=== PATIENT | female | born 1960 | race Caucasian/White ===

== ENCOUNTER 2016-11-04 11:26 | Inpatient (IN) | payer MEDICAID, OTHER ==
[~2016-11-04] VITALS: Ht 167.6 cm; Wt 64.1 kg
[2016-11-04] MEDS ORDERED: SODIUM CHLORIDE FLUSH 10ML SYR IVF ONE (12:30)
[2016-11-04] MEDS ORDERED: ONDANSETRON 2MG/ML, 2ML IVPush ONE (12:30)
[2016-11-04] MEDS ORDERED: SODIUM CHLORIDE 0.9% 1,000ML IVBOLUS ONE (12:30)
[2016-11-04 12:37] LABS: HEMOGLOBIN 10.3 g/dL (11.7-16.4)
[2016-11-04] MEDS ORDERED: CRAN300T PO (12:40)
[2016-11-04] MEDS ORDERED: LORA10TA75 PO (12:40)
[2016-11-04] MEDS ORDERED: METR500T PO (12:40)
[2016-11-04] MEDS ORDERED: LACT1CAP35 PO (12:40)
[2016-11-04] MEDS ORDERED: CHOL20002 PO (12:40)
[2016-11-04] MEDS ORDERED: ASCO-96 PO (12:40)
[2016-11-04 12:51] LABS: ASPARTATE AMINO TRANSFERASE 31 U/L (15-37); BLOOD UREA NITROGEN 5 mg/dL (7-18)
[2016-11-04] MEDS ORDERED: ONDANSETRON 2MG/ML, 2ML ONE (12:52)
[2016-11-04] MEDS ORDERED: MORPHINE SULFATE 4 MG/ML, 1ML ONE ×2 (12:52→13:56)
[2016-11-04] MEDS: MORPHINE SULFATE 4 MG/ML, 1ML IVPush PRN ×3 (13:21→20:28)
[2016-11-04 15:45] LABS: PATH.CAST-FLAG NOT PRESENT; SPERM-FLAG NOT PRESENT; SRC-FLAG NOT PRESENT; XTAL-FLAG NOT PRESENT; YLC-FLAG NOT PRESENT
[2016-11-04] MEDS ORDERED: HYDROmorphone 1 MG/ML, 1ML ONE (15:55)
[2016-11-04] MEDS ORDERED: SODIUM CHLORIDE 0.9% 1,000 ML IV ONE (16:03)
[2016-11-04] MEDS ORDERED: HYDROmorphone 1 MG/ML, 1ML IVPush PRN (16:30)
[2016-11-04] MEDS ORDERED: CEFTRIAXONE PMX 1GM/50ML 50 ML IV ONE ×2 (16:30→17:00)
[2016-11-04] MEDS ORDERED: OMNIPAQUE 350 MG/ML, 100ML BOTTLE ONE (16:34)
[2016-11-04] MEDS ORDERED: BISACODYL 10 MG SUPP PR PRN (17:30)
[2016-11-04] MEDS: VANCOMYCIN 50 MG/ML ORAL SUSP PO SCH (17:30)
[2016-11-04] MEDS ORDERED: ONDANSETRON 2MG/ML, 2ML IVP PRN (17:30)
[2016-11-04] MEDS ORDERED: POTASSIUM CHLORIDE 20 MEQ TAB.ER.PRT PO ONE (17:30)
[2016-11-04] MEDS ORDERED: DOCUSATE 100 MG CAPSULE PO PRN (17:30)
[2016-11-04] MEDS: LACTOBACILLUS 1GM/ PACKET PO SCH ×2 (17:30→20:28)
[2016-11-04] MEDS ORDERED: POLYETHYLENE GLYCOL 17 GM PACKET PO PRN (17:30)
[2016-11-04] MEDS ORDERED: CEFTRIAXONE PMX 1GM/50ML 50 ML IV SCH (17:30)
[2016-11-04] MEDS ORDERED: ACETAMINOPHEN 325 MG TABLET PO PRN (17:30)
[2016-11-04 18:20] LABS: TOTAL IRON BINDING CAPACITY 331 mcg/dL (250-450)
[2016-11-04 18:29] VITALS: BP 122/79
[2016-11-04] MEDS ORDERED: morphine SULFATE 10 MG/ML, 1ML IVPush PRN (20:00)
[2016-11-04] MEDS: ENOXAPARIN 40 MG/0.4 ML SQ SCH (20:28)
[2016-11-04] MEDS: SODIUM CHLORIDE 0.9% 1,000 ML IV SCH (20:28)
[2016-11-04 22:15] VITALS: BP 124/68
[2016-11-05] MEDS: MORPHINE SULFATE 4 MG/ML, 1ML IVPush PRN ×3 (01:34→19:57)
[2016-11-05 02:58] VITALS: BP 137/80
[2016-11-05] MEDS: VANCOMYCIN 50 MG/ML ORAL SUSP PO SCH ×4 (05:12→16:35)
[2016-11-05] MEDS: LACTOBACILLUS 1GM/ PACKET PO SCH ×4 (05:12→21:06)
[2016-11-05] MEDS: SODIUM CHLORIDE 0.9% 1,000 ML IV SCH (05:12)
[2016-11-05 06:15] LABS: HEMOGLOBIN 9.4 g/dL (11.7-16.4)
[2016-11-05 06:33] LABS: ASPARTATE AMINO TRANSFERASE 29 U/L (15-37); BLOOD UREA NITROGEN 2 mg/dL (7-18)
[2016-11-05 06:55] VITALS: BP 139/80
[2016-11-05] MEDS: CHOLECALCIFEROL 1,000 UNIT TABLET PO SCH (08:01)
[2016-11-05] MEDS: ASCORBIC ACID 500 MG TABLET PO SCH (08:01)
[2016-11-05] MEDS: LORATADINE 10 MG TABLET PO SCH (08:01)
[2016-11-05 13:00] VITALS: BP 144/75
[2016-11-05 19:12] VITALS: BP 120/69
[2016-11-05] MEDS: DIPHENHYDRAMINE 25 MG CAPSULE PO PRN (19:57)
[2016-11-05] MEDS: ENOXAPARIN 40 MG/0.4 ML SQ SCH (21:06)
[2016-11-06] MEDS: VANCOMYCIN 50 MG/ML ORAL SUSP PO SCH ×5 (00:08→23:40)
[2016-11-06] MEDS: MORPHINE SULFATE 4 MG/ML, 1ML IVPush PRN ×3 (00:08→23:40)
[2016-11-06 02:36] VITALS: BP 146/89
[2016-11-06] MEDS: DIPHENHYDRAMINE 25 MG CAPSULE PO PRN (02:54)
[2016-11-06] MEDS: LACTOBACILLUS 1GM/ PACKET PO SCH ×4 (05:55→22:07)
[2016-11-06 07:34] VITALS: BP 161/78
[2016-11-06] MEDS: CHOLECALCIFEROL 1,000 UNIT TABLET PO SCH (10:48)
[2016-11-06] MEDS: LORATADINE 10 MG TABLET PO SCH (10:48)
[2016-11-06] MEDS: ASCORBIC ACID 500 MG TABLET PO SCH (10:48)
[2016-11-06] MEDS ORDERED: LORazepam 1MG TABLET PO PRN (11:00)
[2016-11-06] MEDS ORDERED: HEMORRHOIDAL SUPP.RECT PR PRN (11:00)
[2016-11-06] MEDS ORDERED: OXYcodone/APAP 5/325MG TABLET PO PRN (12:00)
[2016-11-06] MEDS ORDERED: TRAZODONE 50MG TABLET PO PRN (12:00)
[2016-11-06] MEDS: DOCUSATE 100 MG CAPSULE PO SCH ×2 (12:23→21:00)
[2016-11-06 12:38] VITALS: BP 130/83
[2016-11-06] MEDS ORDERED: FENTANYL PF 100 MCG/2ML ONE (14:26)
[2016-11-06] MEDS ORDERED: MIDAZOLAM 1 MG/ML, 5ML ONE (14:26)
[2016-11-06 18:50] VITALS: BP 127/72
[2016-11-06] MEDS: ENOXAPARIN 40 MG/0.4 ML SQ SCH (21:00)
[2016-11-07 02:21] VITALS: BP 104/58
[2016-11-07] MEDS: VANCOMYCIN 50 MG/ML ORAL SUSP PO SCH ×2 (05:47→10:53)
[2016-11-07] MEDS: LACTOBACILLUS 1GM/ PACKET PO SCH ×2 (05:47→10:52)
[2016-11-07 07:14] VITALS: BP 122/78
[2016-11-07] MEDS: DOCUSATE 100 MG CAPSULE PO SCH (08:07)
[2016-11-07] MEDS: LORATADINE 10 MG TABLET PO SCH (08:11)
[2016-11-07] MEDS: ASCORBIC ACID 500 MG TABLET PO SCH (08:11)
[2016-11-07] MEDS: CHOLECALCIFEROL 1,000 UNIT TABLET PO SCH (08:11)
[2016-11-07] MEDS: MORPHINE SULFATE 4 MG/ML, 1ML IVPush PRN (08:28)
[2016-11-07] MEDS ORDERED: VANC1VIA3 PO (09:30)
[2016-11-07] MEDS ORDERED: LORA-446 PO (09:30)
[2016-11-07] MEDS ORDERED: TRAZ50TA18 PO (09:30)
[2016-11-07] MEDS ORDERED: MORP30TA81 PO (09:30)
[2016-11-07] MEDS ORDERED: HYDR25SU21 PR (09:33)
[2016-11-07] MEDS ORDERED: FERR325T10 PO (09:38)
[2016-11-08] MEDS ORDERED: METO25TA35 PO (16:13)
== END 2016-11-07 15:00 | disposition home or self-care (01) | DRG 372 ==
LOC: ED 13:39 → EDIP 16:32 → 4EST 18:03 → 4WST 11-05 14:35 → DCLOUNGE 11-07 13:54
PROVIDERS: ADMIT Internal Medicine; ATTEND Internal Medicine
PROC: 0T9B70Z Drainage of Bladder with Drainage Device, Via Natural or Artificial Opening (ICD-10-PCS; 2016-11-04)
PROC: 0FB23ZX Excision of Left Lobe Liver, Percutaneous Approach, Diagnostic (ICD-10-PCS; principal; 2016-11-06)
DX: A04.7 Enterocolitis due to Clostridium difficile (principal); C78.7 Secondary malignant neoplasm of liver and intrahepatic bile duct; C18.9 Malignant neoplasm of colon, unspecified; C79.89 Secondary malignant neoplasm of other specified sites; C79.60 Secondary malignant neoplasm of unspecified ovary; N13.30 Unspecified hydronephrosis; I10 Essential (primary) hypertension; Z91.19 Patient's noncompliance with other medical treatment and regimen; E87.6 Hypokalemia; D64.9 Anemia, unspecified; N30.90 Cystitis, unspecified without hematuria; Z82.49 Family history of ischemic heart disease and other diseases of the circulatory system; Z83.3 Family history of diabetes mellitus; Z91.041 Radiographic dye allergy status; Z91.013 Allergy to seafood; E86.0 Dehydration; F41.9 Anxiety disorder, unspecified; G47.01 Insomnia due to medical condition; D50.9 Iron deficiency anemia, unspecified; K64.4 Residual hemorrhoidal skin tags; K64.8 Other hemorrhoids
CPT/HCPCS: 36415; 36569; 47000; 74177; 76937; 77012; 80053; 81001; 82378; 83540; 83550; 83605; 83690; 83735; 84100; 84443; 85025; 85379; 85610; 85730; 86304; 87040; 87086; 88307; 89055; 96361; 96374; 96375; 96376; 99156; 99157; J0696; J1170; J1650; J2250; J2405; J3010; J3370; Q9967; C1751; J7030; Q0163

== ENCOUNTER → 2016-11-22 | Outpatient (CLI) | payer MEDICAID ==
[~2016-11-22] MED LIST: ASCO-96 PO; CHOL20002 PO; CRAN300T PO; FERR325T10 PO; HYDR-3240 PO; HYDR25SU21 PR; LACT1CAP35 PO; LORA-446 PO; LORA10TA75 PO; METO25TA35 PO; METR500T PO; MORP30TA81 PO; ONDA4TAB10 PO; TRAZ50TA18 PO; VANC1VIA3 PO; ZOLP-413 PO
== END | disposition home or self-care (01) ==
LOC: PETCFH 08:26
PROVIDERS: ATTEND Radiology Radiation Oncology
DX: C21.0 Malignant neoplasm of anus, unspecified (principal); N85.2 Hypertrophy of uterus; R59.1 Generalized enlarged lymph nodes
CPT/HCPCS: 78815; A9552

== ENCOUNTER 2016-12-03 12:38 | Inpatient (IN) | payer MEDICAID ==
[~2016-12-03] VITALS: Ht 167.6 cm; Wt 54.5 kg
[2016-12-03 13:56] VITALS: BP 121/78
[2016-12-03 15:24] LABS: BLOOD UREA NITROGEN 8 mg/dL (7-18)
[2016-12-03 15:28] LABS: ASPARTATE AMINO TRANSFERASE 38 U/L (15-37)
[2016-12-03] MEDS ORDERED: DOCUSATE 50 MG/5 ML, 10ML UDC PO PRN (15:30)
[2016-12-03] MEDS: HYDROcodone/APAP 10/325 MG TABLET PO PRN ×2 (15:54→20:10)
[2016-12-03] MEDS: ONDANSETRON ODT 4 MG PO PRN ×2 (15:54→20:10)
[2016-12-03] MEDS: SODIUM CHLORIDE 0.9% 1,000 ML IV SCH (15:54)
[2016-12-03] MEDS ORDERED: DEXTROSE 5% IV ONE (16:30)
[2016-12-03] MEDS ORDERED: DEXAMETHASONE IV ONE (16:30)
[2016-12-03] MEDS ORDERED: ONDANSETRON IV ONE (16:30)
[2016-12-03] MEDS ORDERED: FOSAPREPITANT 150 MG in SODIUM CHLORIDE 0.9% 145 ML IV ONE (16:30)
[2016-12-03] MEDS ORDERED: SODIUM CHLORIDE 0.9% IV ONE (17:00)
[2016-12-03] MEDS ORDERED: MITOMYCIN IV ONE (17:00)
[2016-12-03] MEDS: FERROUS SULFATE 325 MG TABLET PO SCH (17:17)
[2016-12-03] MEDS: FLUOROURACIL IV SCH (18:59)
[2016-12-03] MEDS: SODIUM CHLORIDE 0.9% IV SCH (18:59)
[2016-12-03] MEDS: SODIUM CHLORIDE FLUSH 10ML SYR IVF SCH (20:10)
[2016-12-03 20:39] VITALS: BP 126/74
[2016-12-03] MEDS: LORazepam 1MG TABLET PO PRN (22:38)
[2016-12-04] MEDS: SODIUM CHLORIDE 0.9% 1,000 ML IV SCH ×3 (01:00→21:26)
[2016-12-04 01:32] VITALS: BP 120/68
[2016-12-04] MEDS: HYDROcodone/APAP 10/325 MG TABLET PO PRN ×5 (01:42→19:21)
[2016-12-04] MEDS: ONDANSETRON ODT 4 MG PO PRN ×5 (01:43→19:21)
[2016-12-04 06:57] VITALS: BP 120/76
[2016-12-04] MEDS: FERROUS SULFATE 325 MG TABLET PO SCH ×3 (08:45→18:50)
[2016-12-04] MEDS: METOPROLOL TARTRATE 25 MG TABLET PO SCH (08:46)
[2016-12-04] MEDS: PROCHLORPERAZINE 10MG TABLET PO PRN (08:48)
[2016-12-04] MEDS: LORazepam 1MG TABLET PO PRN ×2 (08:52→21:26)
[2016-12-04] MEDS: SODIUM CHLORIDE FLUSH 10ML SYR IVF SCH ×2 (09:00→21:26)
[2016-12-04 13:30] VITALS: BP 108/69
[2016-12-04 19:56] VITALS: BP 113/67
[2016-12-04] MEDS: SODIUM CHLORIDE 0.9% IV SCH (23:02)
[2016-12-04] MEDS: FLUOROURACIL IV SCH (23:02)
[2016-12-05] MEDS: ONDANSETRON ODT 4 MG PO PRN ×5 (01:06→20:50)
[2016-12-05] MEDS: HYDROcodone/APAP 10/325 MG TABLET PO PRN ×5 (01:06→20:50)
[2016-12-05 05:01] VITALS: BP 109/62
[2016-12-05 06:34] VITALS: BP 114/68
[2016-12-05] MEDS: PROCHLORPERAZINE 10MG TABLET PO PRN (06:36)
[2016-12-05] MEDS: SODIUM CHLORIDE 0.9% 1,000 ML IV SCH ×2 (08:23→18:03)
[2016-12-05] MEDS: FERROUS SULFATE 325 MG TABLET PO SCH ×3 (09:06→17:00)
[2016-12-05] MEDS: SODIUM CHLORIDE FLUSH 10ML SYR IVF SCH ×2 (09:08→20:27)
[2016-12-05] MEDS: METOPROLOL TARTRATE 25 MG TABLET PO SCH (09:09)
[2016-12-05 13:57] VITALS: BP 111/72
[2016-12-05] MEDS: LORazepam 2 MG/ML, 1ML IVPush PRN ×2 (14:00→22:01)
[2016-12-05] MEDS ORDERED: BISACODYL 5 MG EC TABLET PO PRN (16:00)
[2016-12-05 19:27] LABS: ASPARTATE AMINO TRANSFERASE 36 U/L (15-37); BLOOD UREA NITROGEN 6 mg/dL (7-18)
[2016-12-05] MEDS: SENNA/DOCUSATE TABLET PO SCH (20:26)
[2016-12-05 20:27] VITALS: BP 118/73
[2016-12-06] MEDS: FLUOROURACIL IV SCH (00:35)
[2016-12-06] MEDS: SODIUM CHLORIDE 0.9% IV SCH (00:35)
[2016-12-06 01:21] VITALS: BP 112/68
[2016-12-06] MEDS: PROCHLORPERAZINE 10MG TABLET PO PRN ×2 (03:37→11:49)
[2016-12-06] MEDS: HYDROcodone/APAP 10/325 MG TABLET PO PRN ×2 (03:37→18:09)
[2016-12-06] MEDS: SODIUM CHLORIDE 0.9% 1,000 ML IV SCH ×2 (03:37→14:46)
[2016-12-06 04:08] LABS: ASPARTATE AMINO TRANSFERASE 35 U/L (15-37); BLOOD UREA NITROGEN 5 mg/dL (7-18)
[2016-12-06] MEDS: SODIUM CHLORIDE FLUSH 10ML SYR IVF SCH ×2 (07:47→21:00)
[2016-12-06] MEDS: ONDANSETRON ODT 4 MG PO PRN ×2 (07:47→20:51)
[2016-12-06] MEDS: SENNA/DOCUSATE TABLET PO SCH ×2 (07:48→20:51)
[2016-12-06] MEDS: FERROUS SULFATE 325 MG TABLET PO SCH ×3 (07:48→17:00)
[2016-12-06] MEDS: METOPROLOL TARTRATE 25 MG TABLET PO SCH (07:48)
[2016-12-06 07:51] VITALS: BP 120/76
[2016-12-06 08:24] VITALS: BP 126/76
[2016-12-06] MEDS ORDERED: ONDANSETRON 2MG/ML, 2ML IVPush PRN (13:00)
[2016-12-06] MEDS ORDERED: ONDANSETRON 8 MG TABLET PO PRN (13:00)
[2016-12-06] MEDS ORDERED: PROCHLORPERAZINE 25 MG SUPP PR PRN (13:00)
[2016-12-06] MEDS: VANCOMYCIN 50 MG/ML ORAL SUSP PO SCH (13:14)
[2016-12-06] MEDS: ONDANSETRON 2MG/ML, 2ML IVPush PRN (13:15)
[2016-12-06] MEDS ORDERED: PROMETHAZINE 25 MG/ML, 1ML IM PRN (13:30)
[2016-12-06 14:50] VITALS: BP 126/78
[2016-12-06] MEDS: PROCHLORPERAZINE 5 MG/ML, 2ML IVPush PRN (18:09)
[2016-12-06 19:34] VITALS: BP 123/73
[2016-12-07] MEDS: HYDROcodone/APAP 10/325 MG TABLET PO PRN ×4 (00:15→20:17)
[2016-12-07] MEDS: PROCHLORPERAZINE 5 MG/ML, 2ML IVPush PRN ×3 (00:15→18:08)
[2016-12-07] MEDS: SODIUM CHLORIDE 0.9% 1,000 ML IV SCH ×3 (00:17→21:16)
[2016-12-07 00:18] VITALS: BP 129/71
[2016-12-07] MEDS: SODIUM CHLORIDE 0.9% IV SCH (03:27)
[2016-12-07] MEDS: FLUOROURACIL IV SCH (03:27)
[2016-12-07] MEDS: ONDANSETRON 2MG/ML, 2ML IVPush PRN ×3 (03:30→20:17)
[2016-12-07] MEDS: SENNA/DOCUSATE TABLET PO SCH ×2 (08:12→21:00)
[2016-12-07 08:25] VITALS: BP 147/78
[2016-12-07] MEDS: FERROUS SULFATE 325 MG TABLET PO SCH ×3 (08:34→18:08)
[2016-12-07] MEDS: METOPROLOL TARTRATE 25 MG TABLET PO SCH (08:34)
[2016-12-07] MEDS: VANCOMYCIN 50 MG/ML ORAL SUSP PO SCH (08:34)
[2016-12-07] MEDS: SODIUM CHLORIDE FLUSH 10ML SYR IVF SCH ×2 (08:34→21:00)
[2016-12-07 13:27] VITALS: BP 128/76
[2016-12-07 18:57] VITALS: BP 129/76
[2016-12-08] MEDS: PROCHLORPERAZINE 5 MG/ML, 2ML IVPush PRN (00:17)
[2016-12-08 01:38] VITALS: BP 127/77
[2016-12-08] MEDS: ONDANSETRON 2MG/ML, 2ML IVPush PRN ×2 (04:11→11:29)
[2016-12-08] MEDS: HYDROcodone/APAP 10/325 MG TABLET PO PRN ×2 (04:17→19:55)
[2016-12-08 08:11] VITALS: BP 127/78
[2016-12-08] MEDS: FERROUS SULFATE 325 MG TABLET PO SCH ×3 (08:20→15:25)
[2016-12-08] MEDS: SENNA/DOCUSATE TABLET PO SCH ×2 (08:20→21:00)
[2016-12-08] MEDS: METOPROLOL TARTRATE 25 MG TABLET PO SCH (08:21)
[2016-12-08] MEDS: SODIUM CHLORIDE FLUSH 10ML SYR IVF SCH ×2 (08:21→21:00)
[2016-12-08] MEDS: VANCOMYCIN 50 MG/ML ORAL SUSP PO SCH (08:21)
[2016-12-08] MEDS: PROCHLORPERAZINE 10MG TABLET PO PRN ×2 (08:21→15:25)
[2016-12-08] MEDS: SODIUM CHLORIDE 0.9% 1,000 ML IV SCH ×2 (09:46→21:51)
[2016-12-08] MEDS ORDERED: DIPHENHYDRAMINE 25 MG CAPSULE PO ONE ×2 (12:30→14:00)
[2016-12-08 12:42] LABS: ASPARTATE AMINO TRANSFERASE 35 U/L (15-37); BLOOD UREA NITROGEN 4 mg/dL (7-18)
[2016-12-08] MEDS ORDERED: OMNIPAQUE 350 MG/ML, 100ML BOTTLE ONE (14:12)
[2016-12-08 14:57] VITALS: BP 129/81
[2016-12-08 19:56] VITALS: BP 126/54
[2016-12-09 02:51] VITALS: BP 133/73
[2016-12-09] MEDS: HYDROcodone/APAP 10/325 MG TABLET PO PRN ×2 (03:19→17:06)
[2016-12-09 07:01] VITALS: BP 121/75
[2016-12-09] MEDS: SODIUM CHLORIDE 0.9% 1,000 ML IV SCH (08:27)
[2016-12-09] MEDS: VANCOMYCIN 50 MG/ML ORAL SUSP PO SCH ×4 (08:28→20:18)
[2016-12-09] MEDS: FERROUS SULFATE 325 MG TABLET PO SCH ×3 (08:28→17:05)
[2016-12-09] MEDS: METOPROLOL TARTRATE 25 MG TABLET PO SCH (08:28)
[2016-12-09] MEDS: SENNA/DOCUSATE TABLET PO SCH ×2 (08:28→20:19)
[2016-12-09] MEDS: SODIUM CHLORIDE FLUSH 10ML SYR IVF SCH ×2 (08:36→20:19)
[2016-12-09] MEDS ORDERED: POTASSIUM CHLORIDE 40 MEQ in SODIUM CHLORIDE 0.9% 500 ML IV ONE (10:30)
[2016-12-09 14:19] VITALS: BP 101/68
[2016-12-09 14:26] LABS: ASPARTATE AMINO TRANSFERASE 39 U/L (15-37); BLOOD UREA NITROGEN 6 mg/dL (7-18)
[2016-12-09 14:46] LABS: DIFF TOTAL CELLS COUNTED 100 CELL DIFF
[2016-12-09 15:12] LABS: VERIFY COUNTS? YES
[2016-12-09] MEDS: ONDANSETRON 2MG/ML, 2ML IVPush PRN (16:15)
[2016-12-09] MEDS: SODIUM CHLORIDE 0.45% 1,000 ML IV SCH (16:17)
[2016-12-09] MEDS: PROCHLORPERAZINE 5 MG/ML, 2ML IVPush PRN ×2 (17:01→23:18)
[2016-12-09 19:32] VITALS: BP 134/67
[2016-12-09 20:06] LABS: OCCBLD OBC PASS
[2016-12-10] MEDS: HYDROcodone/APAP 10/325 MG TABLET PO PRN (00:44)
[2016-12-10] MEDS: ONDANSETRON 2MG/ML, 2ML IVPush PRN ×2 (00:44→17:20)
[2016-12-10 01:22] VITALS: BP 129/64
[2016-12-10] MEDS: VANCOMYCIN 50 MG/ML ORAL SUSP PO SCH ×4 (05:26→22:37)
[2016-12-10 06:05] LABS: ASPARTATE AMINO TRANSFERASE 27 U/L (15-37); BLOOD UREA NITROGEN 5 mg/dL (7-18)
[2016-12-10 06:18] LABS: DIFF TOTAL CELLS COUNTED 100 CELL DIFF
[2016-12-10 06:21] LABS: ANISOCYTOSIS 1+; VERIFY COUNTS? YES
[2016-12-10 07:22] VITALS: BP 124/76
[2016-12-10] MEDS: FERROUS SULFATE 325 MG TABLET PO SCH ×3 (08:00→17:00)
[2016-12-10] MEDS: SENNA/DOCUSATE TABLET PO SCH ×2 (09:00→21:00)
[2016-12-10] MEDS ORDERED: POTASSIUM CHLORIDE 40 MEQ in SODIUM CHLORIDE 0.9% 500 ML IV ONE (09:00)
[2016-12-10] MEDS: SODIUM CHLORIDE FLUSH 10ML SYR IVF SCH ×2 (09:00→22:36)
[2016-12-10] MEDS ORDERED: HEPARIN 5,000 UNITS/ML, 1ML IV ONE ×2 (10:30→15:30)
[2016-12-10] MEDS: PROCHLORPERAZINE 10MG TABLET PO PRN (11:09)
[2016-12-10 12:34] VITALS: BP 114/72
[2016-12-10] MEDS: METOPROLOL TARTRATE 25 MG TABLET PO SCH (13:49)
[2016-12-10] MEDS: SODIUM CHLORIDE 0.45% 1,000 ML IV SCH (13:54)
[2016-12-10 13:58] VITALS: BP 132/75
[2016-12-10] MEDS: HEPARIN 25,000 UNITS/500ML PMX 500 ML IV PRN (15:44)
[2016-12-10 19:50] VITALS: BP 131/87
[2016-12-10] MEDS: HEPARIN 5,000 UNITS/ML, 1ML IV PRN (22:33)
[2016-12-10] MEDS: PROCHLORPERAZINE 5 MG/ML, 2ML IVPush PRN (22:50)
[2016-12-11 05:04] VITALS: BP 115/71
[2016-12-11] MEDS: VANCOMYCIN 50 MG/ML ORAL SUSP PO SCH ×4 (05:35→20:13)
[2016-12-11] MEDS: SODIUM CHLORIDE 0.45% 1,000 ML IV SCH ×2 (05:36→20:13)
[2016-12-11 05:50] LABS: BLOOD UREA NITROGEN 3 mg/dL (7-18)
[2016-12-11 06:14] LABS: DIFF TOTAL CELLS COUNTED 100 CELL DIFF
[2016-12-11 06:23] LABS: ANISOCYTOSIS 1+; VERIFY COUNTS? YES
[2016-12-11] MEDS: ONDANSETRON 2MG/ML, 2ML IVPush PRN (06:42)
[2016-12-11 06:45] VITALS: BP 136/70
[2016-12-11] MEDS: HEPARIN 5,000 UNITS/ML, 1ML IV PRN ×3 (06:50→22:18)
[2016-12-11] MEDS: FERROUS SULFATE 325 MG TABLET PO SCH ×3 (08:48→17:42)
[2016-12-11] MEDS: SENNA/DOCUSATE TABLET PO SCH ×2 (08:48→21:00)
[2016-12-11] MEDS: SODIUM CHLORIDE FLUSH 10ML SYR IVF SCH ×2 (08:48→20:13)
[2016-12-11] MEDS: METOPROLOL TARTRATE 25 MG TABLET PO SCH (08:48)
[2016-12-11] MEDS: TBO-FILGRASTIM 300 MCG/0.5 ML SQ SCH (09:00)
[2016-12-11] MEDS ORDERED: POTASSIUM CHLORIDE 40 MEQ in SODIUM CHLORIDE 0.9% 500 ML IV ONE (09:30)
[2016-12-11 13:29] VITALS: BP 101/55
[2016-12-11] MEDS: HYDROcodone/APAP 10/325 MG TABLET PO PRN (16:17)
[2016-12-11] MEDS: POTASSIUM CHLORIDE 20 MEQ TAB.ER.PRT PO SCH (17:42)
[2016-12-11] MEDS: HEPARIN 25,000 UNITS/500ML PMX 500 ML IV PRN (20:15)
[2016-12-11 20:50] VITALS: BP 118/75
[2016-12-11] MEDS: PROCHLORPERAZINE 5 MG/ML, 2ML IVPush PRN (22:17)
[2016-12-12 01:38] VITALS: BP 113/77
[2016-12-12] MEDS: VANCOMYCIN 50 MG/ML ORAL SUSP PO SCH ×4 (06:37→20:20)
[2016-12-12 06:38] VITALS: BP 132/78
[2016-12-12] MEDS: SODIUM CHLORIDE 0.45% 1,000 ML IV SCH ×2 (06:39→20:20)
[2016-12-12] MEDS: HEPARIN 5,000 UNITS/ML, 1ML IV PRN (06:57)
[2016-12-12] MEDS: SENNA/DOCUSATE TABLET PO SCH ×2 (09:00→20:20)
[2016-12-12] MEDS ORDERED: POTASSIUM CHLORIDE 40 MEQ in SODIUM CHLORIDE 0.9% 500 ML IV ONE (09:30)
[2016-12-12] MEDS: FERROUS SULFATE 325 MG TABLET PO SCH ×3 (09:36→16:46)
[2016-12-12] MEDS: METOPROLOL TARTRATE 25 MG TABLET PO SCH (09:36)
[2016-12-12] MEDS: TBO-FILGRASTIM 300 MCG/0.5 ML SQ SCH (09:37)
[2016-12-12] MEDS: SODIUM CHLORIDE FLUSH 10ML SYR IVF SCH ×2 (09:37→20:20)
[2016-12-12] MEDS: PROCHLORPERAZINE 10MG TABLET PO PRN (09:38)
[2016-12-12] MEDS ORDERED: ENOXAPARIN 60 MG/0.6 ML SQ SCH (13:00)
[2016-12-12] MEDS: ENOXAPARIN 60 MG/0.6 ML SQ SCH (13:24)
[2016-12-12 14:07] VITALS: BP 117/71
[2016-12-12] MEDS: POTASSIUM CHLORIDE 20 MEQ TAB.ER.PRT PO SCH (16:47)
[2016-12-12 19:22] VITALS: BP 120/75
[2016-12-13] MEDS: ENOXAPARIN 60 MG/0.6 ML SQ SCH ×2 (01:28→13:53)
[2016-12-13 02:14] VITALS: BP 136/81
[2016-12-13] MEDS: VANCOMYCIN 50 MG/ML ORAL SUSP PO SCH ×4 (05:47→21:15)
[2016-12-13] MEDS: SODIUM CHLORIDE 0.45% 1,000 ML IV SCH (05:50)
[2016-12-13] MEDS: METOPROLOL TARTRATE 25 MG TABLET PO SCH (08:26)
[2016-12-13] MEDS: SODIUM CHLORIDE FLUSH 10ML SYR IVF SCH ×2 (08:26→21:00)
[2016-12-13] MEDS: SENNA/DOCUSATE TABLET PO SCH ×2 (08:26→21:14)
[2016-12-13] MEDS: FERROUS SULFATE 325 MG TABLET PO SCH ×3 (08:26→16:12)
[2016-12-13 08:29] VITALS: BP 119/77
[2016-12-13 09:15] LABS: ASPARTATE AMINO TRANSFERASE 24 U/L (15-37)
[2016-12-13 09:17] LABS: BLOOD UREA NITROGEN < 1 mg/dL (7-18)
[2016-12-13] MEDS: TBO-FILGRASTIM 300 MCG/0.5 ML SQ SCH (10:11)
[2016-12-13 14:30] VITALS: BP 126/80
[2016-12-13] MEDS ORDERED: POTASSIUM CHLORIDE 40 MEQ in SODIUM CHLORIDE 0.45% 1,000 ML IV ONE (16:00)
[2016-12-13] MEDS ORDERED: POTASSIUM CHLORIDE 40 MEQ in SODIUM CHLORIDE 0.45% 1,000 ML IV SCH (16:00)
[2016-12-13] MEDS: POTASSIUM CHLORIDE 20 MEQ TAB.ER.PRT PO SCH (16:13)
[2016-12-13] MEDS: PROCHLORPERAZINE 10MG TABLET PO PRN ×2 (17:38→23:52)
[2016-12-13 19:33] VITALS: BP 123/77
[2016-12-14] MEDS: ENOXAPARIN 60 MG/0.6 ML SQ SCH ×2 (01:29→13:16)
[2016-12-14 02:52] VITALS: BP 117/67
[2016-12-14 04:54] LABS: ASPARTATE AMINO TRANSFERASE 37 U/L (15-37)
[2016-12-14 04:56] LABS: BLOOD UREA NITROGEN < 1 mg/dL (7-18)
[2016-12-14 05:06] LABS: DIFF TOTAL CELLS COUNTED 100 CELL DIFF
[2016-12-14 05:10] LABS: ANISOCYTOSIS 1+
[2016-12-14 05:11] LABS: LARGE PLATELETS 1+
[2016-12-14] MEDS: VANCOMYCIN 50 MG/ML ORAL SUSP PO SCH ×4 (05:46→20:15)
[2016-12-14 06:00] LABS: VERIFY COUNTS? YES
[2016-12-14] MEDS ORDERED: MAGNESIUM SULFATE PMX 2GM/50ML 50 ML IV ONE (07:00)
[2016-12-14 08:30] VITALS: BP 124/75
[2016-12-14] MEDS: SENNA/DOCUSATE TABLET PO SCH ×2 (08:55→20:15)
[2016-12-14] MEDS: SODIUM CHLORIDE FLUSH 10ML SYR IVF SCH ×2 (08:55→20:15)
[2016-12-14] MEDS: METOPROLOL TARTRATE 25 MG TABLET PO SCH (08:55)
[2016-12-14] MEDS: POTASSIUM CHLORIDE 20 MEQ TAB.ER.PRT PO SCH (08:55)
[2016-12-14] MEDS: FERROUS SULFATE 325 MG TABLET PO SCH ×3 (08:55→16:45)
[2016-12-14] MEDS: TBO-FILGRASTIM 300 MCG/0.5 ML SQ SCH (09:48)
[2016-12-14 14:30] VITALS: BP 130/76
[2016-12-14 19:06] VITALS: BP 129/78
[2016-12-15 01:10] VITALS: BP 122/72
[2016-12-15] MEDS: ENOXAPARIN 60 MG/0.6 ML SQ SCH ×2 (01:36→13:56)
[2016-12-15 05:05] LABS: BLOOD UREA NITROGEN 2 mg/dL (7-18)
[2016-12-15 05:10] LABS: ASPARTATE AMINO TRANSFERASE 38 U/L (15-37)
[2016-12-15] MEDS: VANCOMYCIN 50 MG/ML ORAL SUSP PO SCH ×4 (05:42→21:22)
[2016-12-15 06:26] LABS: DIFF TOTAL CELLS COUNTED 100 CELL DIFF
[2016-12-15 06:29] LABS: LARGE PLATELETS 1+
[2016-12-15 06:33] LABS: VERIFY COUNTS? YES
[2016-12-15 06:34] LABS: ANISOCYTOSIS 1+; MICROCYTOSIS 1+; POLYCHROMASIA 1+
[2016-12-15 08:05] VITALS: BP 117/71
[2016-12-15] MEDS: SENNA/DOCUSATE TABLET PO SCH ×2 (08:37→21:00)
[2016-12-15] MEDS: METOPROLOL TARTRATE 25 MG TABLET PO SCH (08:37)
[2016-12-15] MEDS: FERROUS SULFATE 325 MG TABLET PO SCH ×3 (08:37→15:54)
[2016-12-15] MEDS: SODIUM CHLORIDE FLUSH 10ML SYR IVF SCH ×2 (08:38→21:00)
[2016-12-15] MEDS: HYDROcodone/APAP 10/325 MG TABLET PO PRN (13:56)
[2016-12-15 15:40] VITALS: BP 110/63
[2016-12-15 20:12] VITALS: BP 123/77
[2016-12-16] MEDS: ENOXAPARIN 60 MG/0.6 ML SQ SCH ×2 (01:21→14:28)
[2016-12-16 02:03] VITALS: BP 109/67
[2016-12-16] MEDS: VANCOMYCIN 50 MG/ML ORAL SUSP PO SCH ×4 (05:43→21:00)
[2016-12-16 07:17] VITALS: BP 117/75
[2016-12-16 08:35] LABS: DIFF TOTAL CELLS COUNTED 100 CELL DIFF
[2016-12-16 08:38] LABS: VERIFY COUNTS? YES
[2016-12-16 08:39] LABS: ANISOCYTOSIS 1+; POLYCHROMASIA 1+
[2016-12-16 08:42] LABS: LARGE PLATELETS 1+
[2016-12-16] MEDS: SENNA/DOCUSATE TABLET PO SCH ×2 (09:00→21:00)
[2016-12-16] MEDS: SODIUM CHLORIDE FLUSH 10ML SYR IVF SCH ×2 (09:45→21:00)
[2016-12-16] MEDS: FERROUS SULFATE 325 MG TABLET PO SCH ×3 (09:45→16:44)
[2016-12-16] MEDS: METOPROLOL TARTRATE 25 MG TABLET PO SCH (09:46)
[2016-12-16 14:00] VITALS: BP 112/67
[2016-12-16 20:06] VITALS: BP 116/71
[2016-12-16] MEDS: ONDANSETRON ODT 4 MG PO PRN (21:01)
[2016-12-17] MEDS: ENOXAPARIN 60 MG/0.6 ML SQ SCH ×2 (01:48→14:43)
[2016-12-17 01:50] VITALS: BP 121/79
[2016-12-17] MEDS: LORazepam 1MG TABLET PO PRN ×2 (03:32→20:24)
[2016-12-17 05:37] LABS: BLOOD UREA NITROGEN 2 mg/dL (7-18)
[2016-12-17 06:00] LABS: DIFF TOTAL CELLS COUNTED 100 CELL DIFF
[2016-12-17] MEDS: VANCOMYCIN 50 MG/ML ORAL SUSP PO SCH ×4 (06:00→20:24)
[2016-12-17 06:02] LABS: ANISOCYTOSIS 1+; POLYCHROMASIA 1+; VERIFY COUNTS? YES
[2016-12-17] MEDS ORDERED: POTASSIUM CHLORIDE 20 MEQ TAB.ER.PRT PO ONE ×2 (07:00→11:30)
[2016-12-17 07:08] VITALS: BP 106/68
[2016-12-17] MEDS: SODIUM CHLORIDE FLUSH 10ML SYR IVF SCH ×2 (08:26→20:26)
[2016-12-17] MEDS: SENNA/DOCUSATE TABLET PO SCH ×2 (08:26→20:26)
[2016-12-17] MEDS: FERROUS SULFATE 325 MG TABLET PO SCH ×3 (08:26→16:34)
[2016-12-17] MEDS: METOPROLOL TARTRATE 25 MG TABLET PO SCH (08:27)
[2016-12-17] MEDS: ONDANSETRON ODT 4 MG PO PRN (11:59)
[2016-12-17 14:30] VITALS: BP 115/73
[2016-12-17] MEDS: PROCHLORPERAZINE 10MG TABLET PO PRN (16:34)
[2016-12-17 19:41] VITALS: BP 128/77
[2016-12-18 00:53] VITALS: BP 104/67
[2016-12-18] MEDS: ENOXAPARIN 60 MG/0.6 ML SQ SCH (00:53)
[2016-12-18] MEDS: VANCOMYCIN 50 MG/ML ORAL SUSP PO SCH (06:11)
[2016-12-18] MEDS: FERROUS SULFATE 325 MG TABLET PO SCH (07:57)
[2016-12-18] MEDS: SODIUM CHLORIDE FLUSH 10ML SYR IVF SCH (07:58)
[2016-12-18] MEDS: METOPROLOL TARTRATE 25 MG TABLET PO SCH (07:58)
[2016-12-18] MEDS: SENNA/DOCUSATE TABLET PO SCH (07:58)
[2016-12-18] MEDS ORDERED: VANC1VIA3 PO (09:21)
[2016-12-18] MEDS ORDERED: ENOX60SY4 SQ (09:21)
== END 2016-12-18 10:29 | disposition home or self-care (01) | DRG 846 ==
LOC: 3NW 12:38
PROVIDERS: ADMIT Internal Medicine Hematology & Oncology
PROC: 02HV33Z Insertion of Infusion Device into Superior Vena Cava, Percutaneous Approach (ICD-10-PCS; principal; 2016-12-03)
PROC: B5181ZA Fluoroscopy of Superior Vena Cava using Low Osmolar Contrast, Guidance (ICD-10-PCS; 2016-12-03)
PROC: 3E04305 Introduction of Other Antineoplastic into Central Vein, Percutaneous Approach (ICD-10-PCS; 2016-12-03)
PROC: DWY Radiation Therapy, Anatomical Regions, Other Radiation (ICD-10-PCS; 2016-12-03)
PROC: B548ZZA Ultrasonography of Superior Vena Cava, Guidance (ICD-10-PCS; 2016-12-03)
PROC: 0T9B70Z Drainage of Bladder with Drainage Device, Via Natural or Artificial Opening (ICD-10-PCS; 2016-12-08)
PROC: 02PYX3Z Removal of Infusion Device from Great Vessel, External Approach (ICD-10-PCS; 2016-12-10)
DX: Z51.11 Encounter for antineoplastic chemotherapy (principal); D61.810 Antineoplastic chemotherapy induced pancytopenia; E43 Unspecified severe protein-calorie malnutrition; A04.7 Enterocolitis due to Clostridium difficile; N13.30 Unspecified hydronephrosis; I82.622 Acute embolism and thrombosis of deep veins of left upper extremity; T82.868A Thrombosis due to vascular prosthetic devices, implants and grafts, initial encounter; C21.8 Malignant neoplasm of overlapping sites of rectum, anus and anal canal; C79.89 Secondary malignant neoplasm of other specified sites; D64.9 Anemia, unspecified; I10 Essential (primary) hypertension; K80.20 Calculus of gallbladder without cholecystitis without obstruction; F41.9 Anxiety disorder, unspecified; G89.29 Other chronic pain; K76.89 Other specified diseases of liver; T45.1X5A Adverse effect of antineoplastic and immunosuppressive drugs, initial encounter; N83.201 Unspecified ovarian cyst, right side; R33.8 Other retention of urine; K59.00 Constipation, unspecified; K13.0 Diseases of lips; D50.9 Iron deficiency anemia, unspecified; Z91.041 Radiographic dye allergy status; Z92.3 Personal history of irradiation; Z79.899 Other long term (current) drug therapy; Z91.038 Other insect allergy status; Z91.013 Allergy to seafood; Z90.89 Acquired absence of other organs
CPT/HCPCS: 36415; 36569; 74000; 74177; 76937; 77001; 77280; 77336; 77387; 77412; 80048; 80053; 82272; 83735; 84100; 85014; 85018; 85025; 85520; 87324; 87493; J1100; J1453; J1644; J1650; J2405; J3370; J3480; J9280; Q0162; Q0164; Q9967; C1751; J0780; J1447; J2060; J3475; J7030; J7040; J7512; J9190; Q0163

== ENCOUNTER → 2016-12-19 | Outpatient (CLI) | payer MEDICAID ==
[~2016-12-19] MED LIST changes: +ENOX60SY4 SQ
== END | disposition home or self-care (01) ==
LOC: CFH 13:18
PROVIDERS: ATTEND Genetic Counselor, MS
DX: Z51.11 Encounter for antineoplastic chemotherapy (principal); Z51.0 Encounter for antineoplastic radiation therapy; Z12.31 Encounter for screening mammogram for malignant neoplasm of breast; C21.0 Malignant neoplasm of anus, unspecified
CPT/HCPCS: G0202

== ENCOUNTER 2016-12-31 11:19 | Inpatient (IN) | payer MEDICAID ==
[~2016-12-31] VITALS: Ht 167.6 cm; Wt 58.8 kg
[2016-12-31 12:35] LABS: ASPARTATE AMINO TRANSFERASE 18 U/L (15-37); BLOOD UREA NITROGEN 12 mg/dL (7-18)
[2016-12-31 12:47] VITALS: BP 107/67
[2016-12-31 13:30] VITALS: BP 107/67
[2016-12-31] MEDS ORDERED: ENOX60SY5 SQ (15:16)
[2016-12-31] MEDS ORDERED: ZOLPIDEM 5MG TABLET PO PRN (16:00)
[2016-12-31] MEDS ORDERED: SODIUM CHLORIDE 0.9% IV ONE (16:00)
[2016-12-31] MEDS ORDERED: ONDANSETRON 12 MG, DEXAMETHASONE 10 MG in SODIUM CHLORIDE 0.9% 50 ML IVPB ONE (16:00)
[2016-12-31] MEDS ORDERED: FOSAPREPITANT 150 MG in SODIUM CHLORIDE 0.9% 145 ML IV ONE (16:00)
[2016-12-31] MEDS ORDERED: MITOMYCIN IV ONE (16:00)
[2016-12-31] MEDS: SODIUM CHLORIDE 0.9% 1,000 ML IV SCH (16:29)
[2016-12-31 18:57] VITALS: BP 117/73
[2016-12-31] MEDS: SODIUM CHLORIDE 0.9% IV SCH (19:42)
[2016-12-31] MEDS: FLUOROURACIL IV SCH (19:42)
[2016-12-31] MEDS: ENOXAPARIN 60 MG/0.6 ML SQ SCH (20:39)
[2017-01-01 01:48] VITALS: BP 120/74
[2017-01-01 04:35] LABS: BLOOD UREA NITROGEN 10 mg/dL (7-18)
[2017-01-01 04:38] LABS: ASPARTATE AMINO TRANSFERASE 14 U/L (15-37)
[2017-01-01] MEDS: METOPROLOL SUCCINATE 25 MG TAB.ER.24H PO SCH (06:22)
[2017-01-01] MEDS: SODIUM CHLORIDE 0.9% 1,000 ML IV SCH ×2 (08:37→21:01)
[2017-01-01] MEDS: FERROUS SULFATE 325 MG TABLET PO SCH ×2 (08:38→17:53)
[2017-01-01] MEDS: ENOXAPARIN 60 MG/0.6 ML SQ SCH ×2 (08:38→20:58)
[2017-01-01] MEDS: HYDROcodone/APAP 5/325 TABLET PO PRN (12:56)
[2017-01-01 13:37] VITALS: BP 105/66
[2017-01-01] MEDS: ONDANSETRON ODT 4 MG PO PRN ×2 (14:01→23:53)
[2017-01-01] MEDS: LORazepam 1MG TABLET PO PRN (17:52)
[2017-01-01 19:33] VITALS: BP 106/64
[2017-01-01] MEDS: FLUOROURACIL IV SCH (20:58)
[2017-01-01] MEDS: PROCHLORPERAZINE 10MG TABLET PO PRN (20:58)
[2017-01-01] MEDS: SODIUM CHLORIDE 0.9% IV SCH (20:58)
[2017-01-02 02:00] VITALS: BP 107/66
[2017-01-02] MEDS: SODIUM CHLORIDE 0.9% 1,000 ML IV SCH ×3 (05:12→23:38)
[2017-01-02] MEDS: METOPROLOL SUCCINATE 25 MG TAB.ER.24H PO SCH (05:12)
[2017-01-02] MEDS: ONDANSETRON ODT 4 MG PO PRN (05:12)
[2017-01-02] MEDS: PROCHLORPERAZINE 10MG TABLET PO PRN ×2 (05:51→17:46)
[2017-01-02 07:09] VITALS: BP 105/68
[2017-01-02] MEDS: ENOXAPARIN 60 MG/0.6 ML SQ SCH ×2 (07:34→20:05)
[2017-01-02] MEDS: FERROUS SULFATE 325 MG TABLET PO SCH ×2 (07:34→16:37)
[2017-01-02] MEDS: HYDROcodone/APAP 5/325 TABLET PO PRN ×3 (13:03→23:38)
[2017-01-02 14:33] VITALS: BP 113/72
[2017-01-02] MEDS: CALCIUM ACETATE/ALUMINUM SULF PACKET TP SCH ×2 (16:29→20:04)
[2017-01-02 18:35] VITALS: BP 105/69
[2017-01-02] MEDS: FLUOROURACIL IV SCH (23:34)
[2017-01-02] MEDS: SODIUM CHLORIDE 0.9% IV SCH (23:34)
[2017-01-03] MEDS: METOPROLOL SUCCINATE 25 MG TAB.ER.24H PO SCH (05:02)
[2017-01-03] MEDS: HYDROcodone/APAP 5/325 TABLET PO PRN ×3 (05:02→18:33)
[2017-01-03] MEDS: ONDANSETRON ODT 4 MG PO PRN ×2 (05:02→16:20)
[2017-01-03 06:38] VITALS: BP 104/67
[2017-01-03] MEDS ORDERED: LOPERAMIDE 2 MG CAPSULE PO ONE (08:00)
[2017-01-03] MEDS: CALCIUM ACETATE/ALUMINUM SULF PACKET TP SCH ×3 (08:10→20:31)
[2017-01-03] MEDS: FERROUS SULFATE 325 MG TABLET PO SCH ×2 (08:10→16:20)
[2017-01-03] MEDS: ENOXAPARIN 60 MG/0.6 ML SQ SCH ×2 (08:10→19:35)
[2017-01-03] MEDS: SODIUM CHLORIDE 0.9% 1,000 ML IV SCH ×2 (09:58→20:31)
[2017-01-03] MEDS: LOPERAMIDE 2 MG CAPSULE PO PRN ×4 (09:59→16:19)
[2017-01-03 14:29] VITALS: BP 117/77
[2017-01-03] MEDS ORDERED: DIPHENOXYLATE/ATROPINE TABLET PO ONE (18:30)
[2017-01-03 19:30] VITALS: BP 111/69
[2017-01-03] MEDS ORDERED: FLUOROURACIL IV SCH (22:00)
[2017-01-03] MEDS ORDERED: SODIUM CHLORIDE 0.9% IV SCH (22:00)
[2017-01-03] MEDS: DIPHENOXYLATE/ATROPINE TABLET PO PRN (23:01)
[2017-01-04 02:46] VITALS: BP 113/72
[2017-01-04] MEDS: DIPHENOXYLATE/ATROPINE TABLET PO PRN ×2 (02:51→06:10)
[2017-01-04] MEDS: SODIUM CHLORIDE 0.9% 1,000 ML IV SCH ×2 (06:10→17:06)
[2017-01-04] MEDS: METOPROLOL SUCCINATE 25 MG TAB.ER.24H PO SCH (06:13)
[2017-01-04] MEDS: ENOXAPARIN 60 MG/0.6 ML SQ SCH ×2 (07:39→20:56)
[2017-01-04] MEDS: FERROUS SULFATE 325 MG TABLET PO SCH ×2 (07:39→17:11)
[2017-01-04 08:13] VITALS: BP 112/70
[2017-01-04] MEDS: CALCIUM ACETATE/ALUMINUM SULF PACKET TP SCH ×3 (08:41→20:56)
[2017-01-04] MEDS: ONDANSETRON ODT 4 MG PO PRN (10:52)
[2017-01-04] MEDS: HYDROcodone/APAP 5/325 TABLET PO PRN ×2 (11:11→17:10)
[2017-01-04 11:18] LABS: ASPARTATE AMINO TRANSFERASE 17 U/L (15-37); BLOOD UREA NITROGEN 6 mg/dL (7-18)
[2017-01-04] MEDS ORDERED: POTASSIUM CHLORIDE 20 MEQ TAB.ER.PRT PO ONE (12:00)
[2017-01-04 14:12] VITALS: BP 111/69
[2017-01-04] MEDS: PROCHLORPERAZINE 10MG TABLET PO PRN (17:16)
[2017-01-04 19:10] VITALS: BP 121/75
[2017-01-05 02:02] VITALS: BP 115/71
[2017-01-05 03:07] LABS: BLOOD UREA NITROGEN 4 mg/dL (7-18)
[2017-01-05 03:10] LABS: ASPARTATE AMINO TRANSFERASE 17 U/L (15-37)
[2017-01-05 05:30] VITALS: BP 117/72
[2017-01-05] MEDS: HYDROcodone/APAP 5/325 TABLET PO PRN ×2 (05:31→16:47)
[2017-01-05] MEDS: METOPROLOL SUCCINATE 25 MG TAB.ER.24H PO SCH (05:31)
[2017-01-05 07:36] VITALS: BP 114/71
[2017-01-05] MEDS: SODIUM CHLORIDE 0.9% 1,000 ML IV SCH ×3 (09:03→22:42)
[2017-01-05] MEDS: FERROUS SULFATE 325 MG TABLET PO SCH ×2 (09:04→16:35)
[2017-01-05] MEDS: CALCIUM ACETATE/ALUMINUM SULF PACKET TP SCH ×3 (09:04→21:00)
[2017-01-05] MEDS: ENOXAPARIN 60 MG/0.6 ML SQ SCH ×2 (09:04→19:50)
[2017-01-05] MEDS: PROCHLORPERAZINE 10MG TABLET PO PRN (09:34)
[2017-01-05 10:57] VITALS: BP 112/64
[2017-01-05] MEDS: LOPERAMIDE 2 MG CAPSULE PO PRN ×2 (12:38→16:47)
[2017-01-05 14:51] VITALS: BP 114/73
[2017-01-05 19:48] VITALS: BP 128/79
[2017-01-06] MEDS: HYDROcodone/APAP 5/325 TABLET PO PRN ×3 (02:32→14:50)
[2017-01-06 02:50] VITALS: BP 121/73
[2017-01-06 05:59] LABS: BLOOD UREA NITROGEN 4 mg/dL (7-18)
[2017-01-06 06:04] LABS: ASPARTATE AMINO TRANSFERASE 17 U/L (15-37)
[2017-01-06] MEDS: METOPROLOL SUCCINATE 25 MG TAB.ER.24H PO SCH (06:10)
[2017-01-06 07:25] VITALS: BP 127/73
[2017-01-06] MEDS: FERROUS SULFATE 325 MG TABLET PO SCH ×2 (08:36→17:04)
[2017-01-06] MEDS: ENOXAPARIN 60 MG/0.6 ML SQ SCH ×2 (08:36→21:11)
[2017-01-06] MEDS: SODIUM CHLORIDE 0.9% 1,000 ML IV SCH ×2 (08:37→17:13)
[2017-01-06] MEDS: CALCIUM ACETATE/ALUMINUM SULF PACKET TP SCH ×3 (09:00→21:00)
[2017-01-06] MEDS: VANCOMYCIN 50 MG/ML ORAL SUSP PO SCH ×3 (09:00→21:11)
[2017-01-06] MEDS: ONDANSETRON ODT 4 MG PO PRN (14:50)
[2017-01-06] MEDS: PROCHLORPERAZINE 10MG TABLET PO PRN (17:13)
[2017-01-06 17:14] VITALS: BP 111/72
[2017-01-07 02:37] VITALS: BP 129/82
[2017-01-07] MEDS: SODIUM CHLORIDE 0.9% 1,000 ML IV SCH ×2 (02:37→13:41)
[2017-01-07] MEDS: VANCOMYCIN 50 MG/ML ORAL SUSP PO SCH ×4 (02:37→20:51)
[2017-01-07] MEDS: HYDROcodone/APAP 5/325 TABLET PO PRN ×2 (02:47→09:05)
[2017-01-07] MEDS: METOPROLOL SUCCINATE 25 MG TAB.ER.24H PO SCH (05:22)
[2017-01-07 05:47] LABS: BLOOD UREA NITROGEN 5 mg/dL (7-18)
[2017-01-07 05:50] LABS: ASPARTATE AMINO TRANSFERASE 13 U/L (15-37)
[2017-01-07] MEDS: FERROUS SULFATE 325 MG TABLET PO SCH ×2 (08:55→17:18)
[2017-01-07] MEDS: ENOXAPARIN 60 MG/0.6 ML SQ SCH ×2 (08:56→20:51)
[2017-01-07] MEDS: CALCIUM ACETATE/ALUMINUM SULF PACKET TP SCH ×3 (08:56→20:52)
[2017-01-07] MEDS: ONDANSETRON ODT 4 MG PO PRN (09:04)
[2017-01-07 09:37] VITALS: BP 123/75
[2017-01-07] MEDS ORDERED: MORPHINE SULFATE 4 MG/ML, 1ML ONE (09:51)
[2017-01-07] MEDS ORDERED: MORPHINE SULFATE 4 MG/ML, 1ML IVPush PRN (10:00)
[2017-01-07] MEDS: MORPHINE SULFATE 4 MG/ML, 1ML IVPush PRN ×3 (11:34→17:19)
[2017-01-07] MEDS: PROCHLORPERAZINE 10MG TABLET PO PRN ×2 (13:20→20:52)
[2017-01-07] MEDS: METRONIDAZOLE PMX 500MG/100ML 100 ML IV SCH ×2 (15:15→20:51)
[2017-01-07 16:33] VITALS: BP 107/71
[2017-01-07 20:23] VITALS: BP 108/67
[2017-01-07] MEDS: LORazepam 1MG TABLET PO PRN (21:28)
[2017-01-08] MEDS: SODIUM CHLORIDE 0.9% 1,000 ML IV SCH ×3 (00:29→23:25)
[2017-01-08] MEDS: MORPHINE SULFATE 4 MG/ML, 1ML IVPush PRN ×3 (00:53→12:58)
[2017-01-08] MEDS: VANCOMYCIN 50 MG/ML ORAL SUSP PO SCH ×4 (03:00→20:26)
[2017-01-08 05:43] LABS: ASPARTATE AMINO TRANSFERASE 14 U/L (15-37); BLOOD UREA NITROGEN 5 mg/dL (7-18)
[2017-01-08] MEDS: METOPROLOL SUCCINATE 25 MG TAB.ER.24H PO SCH ×2 (06:00→06:13)
[2017-01-08] MEDS: METRONIDAZOLE PMX 500MG/100ML 100 ML IV SCH ×3 (06:13→22:30)
[2017-01-08 06:19] VITALS: BP 99/64
[2017-01-08 06:21] LABS: ANISOCYTOSIS 1+; DIFF TOTAL CELLS COUNTED 50 CELL DIFFERENTIAL; VERIFY COUNTS? YES
[2017-01-08 08:17] VITALS: BP 108/66
[2017-01-08] MEDS: FERROUS SULFATE 325 MG TABLET PO SCH ×2 (08:35→16:10)
[2017-01-08] MEDS: ENOXAPARIN 60 MG/0.6 ML SQ SCH ×2 (08:35→20:26)
[2017-01-08] MEDS: CALCIUM ACETATE/ALUMINUM SULF PACKET TP SCH ×3 (08:36→20:27)
[2017-01-08 15:27] VITALS: BP 104/67
[2017-01-08] MEDS: HYDROcodone/APAP 5/325 TABLET PO PRN ×2 (16:10→22:30)
[2017-01-08] MEDS ORDERED: TBO-FILGRASTIM 480 MCG/0.8 ML SQ SCH (18:00)
[2017-01-08 19:42] VITALS: BP 121/73
[2017-01-08] MEDS: ONDANSETRON ODT 4 MG PO PRN (20:26)
[2017-01-08] MEDS: TBO-FILGRASTIM 480 MCG/0.8 ML SQ SCH (20:26)
[2017-01-08] MEDS: POTASSIUM CHLORIDE 20 MEQ TAB.ER.PRT PO SCH (22:30)
[2017-01-08] MEDS: LORazepam 1MG TABLET PO PRN (23:25)
[2017-01-09] MEDS: HYDROcodone/APAP 5/325 TABLET PO PRN ×3 (02:15→17:15)
[2017-01-09 02:17] VITALS: BP 124/73
[2017-01-09] MEDS: VANCOMYCIN 50 MG/ML ORAL SUSP PO SCH ×4 (02:56→20:23)
[2017-01-09] MEDS: MORPHINE SULFATE 4 MG/ML, 1ML IVPush PRN ×5 (02:57→21:18)
[2017-01-09 06:04] LABS: ASPARTATE AMINO TRANSFERASE 11 U/L (15-37); BLOOD UREA NITROGEN 3 mg/dL (7-18)
[2017-01-09 06:16] LABS: DIFF TOTAL CELLS COUNTED 50 CELL DIFFERENTIAL
[2017-01-09 06:18] LABS: ANISOCYTOSIS 1+
[2017-01-09 06:26] LABS: VERIFY COUNTS? YES
[2017-01-09 06:30] VITALS: BP 112/71
[2017-01-09] MEDS: METRONIDAZOLE PMX 500MG/100ML 100 ML IV SCH ×3 (06:33→21:18)
[2017-01-09] MEDS: METOPROLOL SUCCINATE 25 MG TAB.ER.24H PO SCH (06:33)
[2017-01-09 07:09] VITALS: BP 105/65
[2017-01-09] MEDS: CALCIUM ACETATE/ALUMINUM SULF PACKET TP SCH ×3 (09:00→20:23)
[2017-01-09] MEDS: ENOXAPARIN 60 MG/0.6 ML SQ SCH ×2 (09:15→20:23)
[2017-01-09] MEDS: FERROUS SULFATE 325 MG TABLET PO SCH ×2 (09:15→17:15)
[2017-01-09] MEDS: POTASSIUM CHLORIDE 20 MEQ TAB.ER.PRT PO SCH (09:15)
[2017-01-09] MEDS: SODIUM CHLORIDE 0.9% 1,000 ML IV SCH ×2 (12:18→20:23)
[2017-01-09 12:24] VITALS: BP 110/70
[2017-01-09] MEDS: ONDANSETRON ODT 4 MG PO PRN ×2 (12:29→22:51)
[2017-01-09] MEDS: TBO-FILGRASTIM 480 MCG/0.8 ML SQ SCH (20:23)
[2017-01-09 20:29] VITALS: BP 120/68
[2017-01-10] VITALS (9 sets, daily range): BP systolic 106–130; BP diastolic 65–75
[2017-01-10] MEDS: VANCOMYCIN 50 MG/ML ORAL SUSP PO SCH ×4 (02:52→20:47)
[2017-01-10] MEDS: HYDROcodone/APAP 5/325 TABLET PO PRN ×5 (02:57→22:17)
[2017-01-10] MEDS: METRONIDAZOLE PMX 500MG/100ML 100 ML IV SCH ×3 (05:19→23:08)
[2017-01-10] MEDS: METOPROLOL SUCCINATE 25 MG TAB.ER.24H PO SCH (05:20)
[2017-01-10] MEDS: MORPHINE SULFATE 4 MG/ML, 1ML IVPush PRN ×4 (05:20→23:08)
[2017-01-10 06:17] LABS: ASPARTATE AMINO TRANSFERASE 7 U/L (15-37); BLOOD UREA NITROGEN 3 mg/dL (7-18)
[2017-01-10] MEDS: FERROUS SULFATE 325 MG TABLET PO SCH ×2 (07:57→16:09)
[2017-01-10] MEDS: SODIUM CHLORIDE 0.9% 1,000 ML IV SCH (08:00)
[2017-01-10] MEDS ORDERED: NS + 20MEQ KCL 1,000 ML IV SCH (08:30)
[2017-01-10] MEDS ORDERED: MAGNESIUM SULFATE PMX 2GM/50ML 50 ML IV ONE (08:30)
[2017-01-10] MEDS: ENOXAPARIN 60 MG/0.6 ML SQ SCH ×2 (08:42→20:47)
[2017-01-10] MEDS: CALCIUM ACETATE/ALUMINUM SULF PACKET TP SCH ×3 (08:58→20:47)
[2017-01-10] MEDS: POTASSIUM CHLORIDE 20 MEQ TAB.ER.PRT PO SCH (10:22)
[2017-01-10] MEDS ORDERED: DIPHENHYDRAMINE 25 MG CAPSULE PO ONE (10:30)
[2017-01-10] MEDS ORDERED: ACETAMINOPHEN 325 MG TABLET PO ONE (10:30)
[2017-01-10] MEDS: ONDANSETRON ODT 4 MG PO PRN (11:55)
[2017-01-10] MEDS: CEFEPIME 2 GM in DEXTROSE 5% 100 ML IV SCH ×2 (16:09→22:34)
[2017-01-10] MEDS: TBO-FILGRASTIM 480 MCG/0.8 ML SQ SCH (20:47)
[2017-01-10] MEDS ORDERED: ACETAMINOPHEN 325 MG TABLET PO PRN (21:00)
[2017-01-10] MEDS: NS + 20MEQ KCL 1,000 ML IV SCH (22:18)
[2017-01-11] MEDS: MORPHINE SULFATE 4 MG/ML, 1ML IVPush PRN ×8 (01:08→21:22)
[2017-01-11] MEDS: HYDROcodone/APAP 5/325 TABLET PO PRN ×4 (02:21→19:55)
[2017-01-11 02:24] VITALS: BP 118/71
[2017-01-11] MEDS: VANCOMYCIN 50 MG/ML ORAL SUSP PO SCH ×4 (02:58→21:22)
[2017-01-11 04:46] LABS: ASPARTATE AMINO TRANSFERASE 10 U/L (15-37); BLOOD UREA NITROGEN 4 mg/dL (7-18)
[2017-01-11 05:42] LABS: DIFF TOTAL CELLS COUNTED 25 CELL DIFFERENTIAL
[2017-01-11 05:46] LABS: ANISOCYTOSIS 1+; VERIFY COUNTS? YES
[2017-01-11] MEDS: METOPROLOL SUCCINATE 25 MG TAB.ER.24H PO SCH (06:32)
[2017-01-11] MEDS: CEFEPIME 2 GM in DEXTROSE 5% 100 ML IV SCH ×3 (06:32→23:35)
[2017-01-11] MEDS: METRONIDAZOLE PMX 500MG/100ML 100 ML IV SCH ×2 (07:52→15:56)
[2017-01-11 07:56] VITALS: BP 110/73
[2017-01-11] MEDS: CALCIUM ACETATE/ALUMINUM SULF PACKET TP SCH ×3 (09:00→21:00)
[2017-01-11] MEDS: NS + 20MEQ KCL 1,000 ML IV SCH ×3 (09:10→19:30)
[2017-01-11] MEDS: PROCHLORPERAZINE 10MG TABLET PO PRN ×2 (09:10→16:07)
[2017-01-11] MEDS: FERROUS SULFATE 325 MG TABLET PO SCH ×2 (09:10→15:56)
[2017-01-11] MEDS: POTASSIUM CHLORIDE 20 MEQ TAB.ER.PRT PO SCH (09:10)
[2017-01-11] MEDS: ENOXAPARIN 60 MG/0.6 ML SQ SCH ×2 (09:11→21:22)
[2017-01-11 16:02] VITALS: BP 121/66
[2017-01-11] MEDS: CLOTRIMAZOLE CRM 1%, 15GM TP SCH ×2 (16:07→21:23)
[2017-01-11 19:37] VITALS: BP 120/73
[2017-01-11] MEDS: TBO-FILGRASTIM 480 MCG/0.8 ML SQ SCH (19:55)
[2017-01-12] MEDS: HYDROcodone/APAP 5/325 TABLET PO PRN ×3 (00:23→10:59)
[2017-01-12] MEDS: METRONIDAZOLE PMX 500MG/100ML 100 ML IV SCH ×3 (00:23→15:37)
[2017-01-12] MEDS: MORPHINE SULFATE 4 MG/ML, 1ML IVPush PRN ×6 (00:24→20:08)
[2017-01-12] MEDS: VANCOMYCIN 50 MG/ML ORAL SUSP PO SCH ×4 (03:10→20:29)
[2017-01-12 03:46] VITALS: BP 99/62
[2017-01-12 05:08] LABS: ASPARTATE AMINO TRANSFERASE 8 U/L (15-37); BLOOD UREA NITROGEN 4 mg/dL (7-18)
[2017-01-12] MEDS: METOPROLOL SUCCINATE 25 MG TAB.ER.24H PO SCH (06:21)
[2017-01-12] MEDS: NS + 20MEQ KCL 1,000 ML IV SCH ×2 (06:21→19:58)
[2017-01-12 06:43] VITALS: BP 100/59
[2017-01-12 07:27] LABS: ANISOCYTOSIS 1+; DIFF TOTAL CELLS COUNTED 25 CELL DIFFERENTIAL; VERIFY COUNTS? YES
[2017-01-12] MEDS: CEFEPIME 2 GM in DEXTROSE 5% 100 ML IV SCH (07:51)
[2017-01-12] MEDS: ONDANSETRON ODT 4 MG PO PRN ×2 (07:59→16:33)
[2017-01-12] MEDS: ENOXAPARIN 60 MG/0.6 ML SQ SCH ×2 (09:05→20:29)
[2017-01-12] MEDS: FERROUS SULFATE 325 MG TABLET PO SCH ×2 (09:05→16:15)
[2017-01-12] MEDS: CALCIUM ACETATE/ALUMINUM SULF PACKET TP SCH ×3 (09:06→20:29)
[2017-01-12] MEDS: CLOTRIMAZOLE CRM 1%, 15GM TP SCH ×2 (09:06→20:30)
[2017-01-12] MEDS: POTASSIUM CHLORIDE 20 MEQ TAB.ER.PRT PO SCH (09:10)
[2017-01-12] MEDS ORDERED: CEFTRIAXONE 2 GM in SODIUM CHLORIDE 0.9% 50 ML IV SCH (10:00)
[2017-01-12] MEDS: CEFTRIAXONE PMX 2GM/50ML 50 ML IVPB SCH (11:02)
[2017-01-12 13:34] VITALS: BP 93/61
[2017-01-12 18:49] VITALS: BP 119/68
[2017-01-12] MEDS: TBO-FILGRASTIM 480 MCG/0.8 ML SQ SCH (20:29)
[2017-01-13] MEDS: HYDROcodone/APAP 5/325 TABLET PO PRN ×3 (00:04→16:13)
[2017-01-13] MEDS: METRONIDAZOLE PMX 500MG/100ML 100 ML IV SCH ×3 (00:04→16:02)
[2017-01-13 00:29] VITALS: BP 106/63
[2017-01-13] MEDS: MORPHINE SULFATE 4 MG/ML, 1ML IVPush PRN ×5 (02:17→18:18)
[2017-01-13] MEDS: VANCOMYCIN 50 MG/ML ORAL SUSP PO SCH ×4 (03:18→22:45)
[2017-01-13] MEDS: METOPROLOL SUCCINATE 25 MG TAB.ER.24H PO SCH (05:44)
[2017-01-13] MEDS: NS + 20MEQ KCL 1,000 ML IV SCH ×2 (05:45→18:10)
[2017-01-13 06:03] LABS: ASPARTATE AMINO TRANSFERASE 8 U/L (15-37); BLOOD UREA NITROGEN 2 mg/dL (7-18)
[2017-01-13 06:10] LABS: DIFF TOTAL CELLS COUNTED 50 CELL DIFFERENTIAL; VERIFY COUNTS? YES
[2017-01-13 06:11] LABS: ANISOCYTOSIS 1+
[2017-01-13 08:00] VITALS: BP 109/70
[2017-01-13] MEDS: ENOXAPARIN 60 MG/0.6 ML SQ SCH ×2 (08:57→20:36)
[2017-01-13] MEDS: CLOTRIMAZOLE CRM 1%, 15GM TP SCH ×2 (08:57→20:49)
[2017-01-13] MEDS: FERROUS SULFATE 325 MG TABLET PO SCH ×2 (08:57→16:13)
[2017-01-13] MEDS: POTASSIUM CHLORIDE 20 MEQ TAB.ER.PRT PO SCH (08:57)
[2017-01-13] MEDS: CALCIUM ACETATE/ALUMINUM SULF PACKET TP SCH ×3 (08:57→21:00)
[2017-01-13] MEDS: CEFTRIAXONE PMX 2GM/50ML 50 ML IVPB SCH (11:12)
[2017-01-13] MEDS: LORazepam 1MG TABLET PO PRN (11:12)
[2017-01-13 14:00] VITALS: BP 106/70
[2017-01-13 15:46] VITALS: BP 100/67
[2017-01-13] MEDS: ONDANSETRON ODT 4 MG PO PRN (18:18)
[2017-01-13 19:55] VITALS: BP 179/81
[2017-01-13 20:33] VITALS: BP 112/73
[2017-01-13] MEDS: TBO-FILGRASTIM 480 MCG/0.8 ML SQ SCH (20:44)
[2017-01-13] MEDS: PROCHLORPERAZINE 10MG TABLET PO PRN (20:44)
[2017-01-14] MEDS: METRONIDAZOLE PMX 500MG/100ML 100 ML IV SCH ×3 (00:12→15:37)
[2017-01-14 02:31] VITALS: BP 113/71
[2017-01-14 04:48] LABS: BLOOD UREA NITROGEN 1 mg/dL (7-18)
[2017-01-14 04:51] LABS: ASPARTATE AMINO TRANSFERASE 9 U/L (15-37)
[2017-01-14] MEDS: METOPROLOL SUCCINATE 25 MG TAB.ER.24H PO SCH (05:05)
[2017-01-14] MEDS: NS + 20MEQ KCL 1,000 ML IV SCH ×2 (05:05→21:18)
[2017-01-14] MEDS: VANCOMYCIN 50 MG/ML ORAL SUSP PO SCH ×4 (05:05→21:18)
[2017-01-14 05:46] LABS: DIFF TOTAL CELLS COUNTED 100 CELL DIFF
[2017-01-14 05:55] LABS: ANISOCYTOSIS 1+; VERIFY COUNTS? YES
[2017-01-14 08:11] VITALS: BP 113/68
[2017-01-14] MEDS: POTASSIUM CHLORIDE 20 MEQ TAB.ER.PRT PO SCH (09:33)
[2017-01-14] MEDS: FERROUS SULFATE 325 MG TABLET PO SCH ×2 (09:33→15:37)
[2017-01-14] MEDS: MORPHINE SULFATE 4 MG/ML, 1ML IVPush PRN ×4 (09:33→20:38)
[2017-01-14] MEDS: CLOTRIMAZOLE CRM 1%, 15GM TP SCH ×2 (09:34→20:39)
[2017-01-14] MEDS: CALCIUM ACETATE/ALUMINUM SULF PACKET TP SCH ×3 (09:34→20:38)
[2017-01-14] MEDS: ENOXAPARIN 60 MG/0.6 ML SQ SCH ×2 (09:34→20:38)
[2017-01-14 14:30] VITALS: BP 120/81
[2017-01-14] MEDS: CEFTRIAXONE PMX 2GM/50ML 50 ML IVPB SCH (14:51)
[2017-01-14] MEDS: HYDROcodone/APAP 5/325 TABLET PO PRN (14:51)
[2017-01-14] MEDS: ONDANSETRON ODT 4 MG PO PRN (14:54)
[2017-01-14 20:18] VITALS: BP 113/67
[2017-01-14] MEDS: TBO-FILGRASTIM 480 MCG/0.8 ML SQ SCH (20:38)
[2017-01-14] MEDS: LORazepam 1MG TABLET PO PRN (21:18)
[2017-01-15] MEDS: METRONIDAZOLE PMX 500MG/100ML 100 ML IV SCH ×4 (00:17→22:58)
[2017-01-15 03:15] VITALS: BP 113/69
[2017-01-15] MEDS: VANCOMYCIN 50 MG/ML ORAL SUSP PO SCH ×4 (04:19→21:10)
[2017-01-15 04:51] LABS: BLOOD UREA NITROGEN < 1 mg/dL (7-18)
[2017-01-15 04:54] LABS: ASPARTATE AMINO TRANSFERASE 15 U/L (15-37)
[2017-01-15 05:49] LABS: DIFF TOTAL CELLS COUNTED 100 CELL DIFF
[2017-01-15 05:52] LABS: VERIFY COUNTS? YES
[2017-01-15 05:53] LABS: ANISOCYTOSIS 1+
[2017-01-15] MEDS: METOPROLOL SUCCINATE 25 MG TAB.ER.24H PO SCH (05:53)
[2017-01-15 07:33] VITALS: BP 114/71
[2017-01-15] MEDS: FERROUS SULFATE 325 MG TABLET PO SCH ×2 (08:07→16:50)
[2017-01-15] MEDS: POTASSIUM CHLORIDE 20 MEQ TAB.ER.PRT PO SCH (08:07)
[2017-01-15] MEDS: CALCIUM ACETATE/ALUMINUM SULF PACKET TP SCH ×3 (08:08→21:00)
[2017-01-15] MEDS: ENOXAPARIN 60 MG/0.6 ML SQ SCH ×2 (08:08→21:09)
[2017-01-15] MEDS: CLOTRIMAZOLE CRM 1%, 15GM TP SCH ×2 (08:09→21:00)
[2017-01-15] MEDS: NS + 20MEQ KCL 1,000 ML IV SCH ×2 (09:13→22:58)
[2017-01-15] MEDS: MORPHINE SULFATE 4 MG/ML, 1ML IVPush PRN ×3 (09:24→21:46)
[2017-01-15] MEDS: HYDROcodone/APAP 5/325 TABLET PO PRN (11:10)
[2017-01-15] MEDS: CEFTRIAXONE PMX 2GM/50ML 50 ML IVPB SCH (12:56)
[2017-01-15] MEDS: PROCHLORPERAZINE 10MG TABLET PO PRN (13:46)
[2017-01-15 14:04] VITALS: BP 106/68
[2017-01-15] MEDS: ONDANSETRON ODT 4 MG PO PRN (16:50)
[2017-01-15 19:23] VITALS: BP 110/73
[2017-01-16 01:50] VITALS: BP 105/67
[2017-01-16] MEDS: VANCOMYCIN 50 MG/ML ORAL SUSP PO SCH ×4 (03:17→22:20)
[2017-01-16 05:20] LABS: ASPARTATE AMINO TRANSFERASE 23 U/L (15-37); BLOOD UREA NITROGEN 1 mg/dL (7-18)
[2017-01-16 05:51] LABS: DIFF TOTAL CELLS COUNTED 100 CELL DIFF; VERIFY COUNTS? YES
[2017-01-16 05:52] LABS: ANISOCYTOSIS 1+; OVALOCYTES 1+
[2017-01-16 05:58] VITALS: BP 110/73
[2017-01-16] MEDS: METOPROLOL SUCCINATE 25 MG TAB.ER.24H PO SCH (05:59)
[2017-01-16] MEDS: POTASSIUM CHLORIDE 20 MEQ TAB.ER.PRT PO SCH (08:07)
[2017-01-16] MEDS: FERROUS SULFATE 325 MG TABLET PO SCH ×2 (08:07→16:13)
[2017-01-16] MEDS: ENOXAPARIN 60 MG/0.6 ML SQ SCH ×2 (08:07→21:16)
[2017-01-16] MEDS: CLOTRIMAZOLE CRM 1%, 15GM TP SCH ×2 (08:08→21:17)
[2017-01-16] MEDS: CALCIUM ACETATE/ALUMINUM SULF PACKET TP SCH ×3 (08:08→21:00)
[2017-01-16 08:50] VITALS: BP 124/79
[2017-01-16] MEDS: NS + 20MEQ KCL 1,000 ML IV SCH ×2 (10:00→22:19)
[2017-01-16] MEDS: CEFTRIAXONE PMX 2GM/50ML 50 ML IVPB SCH (13:27)
[2017-01-16 13:31] VITALS: BP 110/74
[2017-01-16] MEDS: HYDROcodone/APAP 5/325 TABLET PO PRN ×2 (13:37→21:16)
[2017-01-16 19:19] VITALS: BP 104/69
[2017-01-17 03:18] VITALS: BP 109/71
[2017-01-17] MEDS: HYDROcodone/APAP 5/325 TABLET PO PRN ×5 (03:46→22:01)
[2017-01-17] MEDS: VANCOMYCIN 50 MG/ML ORAL SUSP PO SCH ×4 (03:46→21:07)
[2017-01-17 05:18] LABS: ASPARTATE AMINO TRANSFERASE 25 U/L (15-37); BLOOD UREA NITROGEN < 1 mg/dL (7-18)
[2017-01-17 05:52] LABS: DIFF TOTAL CELLS COUNTED 200 CELL DIFF; VERIFY COUNTS? YES
[2017-01-17 05:56] LABS: ANISOCYTOSIS 1+
[2017-01-17] MEDS: METOPROLOL SUCCINATE 25 MG TAB.ER.24H PO SCH (06:09)
[2017-01-17] MEDS: NS + 20MEQ KCL 1,000 ML IV SCH ×2 (07:55→23:44)
[2017-01-17] MEDS: FERROUS SULFATE 325 MG TABLET PO SCH ×2 (07:55→16:13)
[2017-01-17] MEDS: ENOXAPARIN 60 MG/0.6 ML SQ SCH ×2 (07:55→21:06)
[2017-01-17] MEDS: POTASSIUM CHLORIDE 20 MEQ TAB.ER.PRT PO SCH (07:55)
[2017-01-17] MEDS: CALCIUM ACETATE/ALUMINUM SULF PACKET TP SCH ×3 (07:56→21:00)
[2017-01-17] MEDS: CLOTRIMAZOLE CRM 1%, 15GM TP SCH ×2 (07:56→21:06)
[2017-01-17 08:03] VITALS: BP 103/72
[2017-01-17 15:21] VITALS: BP 114/75
[2017-01-17] MEDS: PROCHLORPERAZINE 10MG TABLET PO PRN (16:13)
[2017-01-17 20:48] VITALS: BP 119/76
[2017-01-18 02:45] VITALS: BP 106/69
[2017-01-18] MEDS: VANCOMYCIN 50 MG/ML ORAL SUSP PO SCH ×4 (04:02→21:57)
[2017-01-18] MEDS: HYDROcodone/APAP 5/325 TABLET PO PRN ×4 (04:02→18:45)
[2017-01-18 05:04] LABS: BLOOD UREA NITROGEN 2 mg/dL (7-18)
[2017-01-18 05:09] LABS: ASPARTATE AMINO TRANSFERASE 19 U/L (15-37)
[2017-01-18] MEDS: METOPROLOL SUCCINATE 25 MG TAB.ER.24H PO SCH (05:42)
[2017-01-18 07:49] VITALS: BP 107/70
[2017-01-18] MEDS: ENOXAPARIN 60 MG/0.6 ML SQ SCH ×2 (08:57→20:47)
[2017-01-18] MEDS: POTASSIUM CHLORIDE 20 MEQ TAB.ER.PRT PO SCH (08:57)
[2017-01-18] MEDS: FERROUS SULFATE 325 MG TABLET PO SCH ×2 (08:57→18:45)
[2017-01-18] MEDS: CLOTRIMAZOLE CRM 1%, 15GM TP SCH ×2 (08:58→20:48)
[2017-01-18] MEDS: CALCIUM ACETATE/ALUMINUM SULF PACKET TP SCH ×3 (08:58→20:47)
[2017-01-18 13:09] VITALS: BP 108/72
[2017-01-18] MEDS: NS + 20MEQ KCL 1,000 ML IV SCH (14:31)
[2017-01-18 19:29] VITALS: BP 127/77
[2017-01-18] MEDS ORDERED: NS + 20MEQ KCL 1,000 ML IV SCH (21:00)
[2017-01-19 03:03] VITALS: BP 110/72
[2017-01-19] MEDS: VANCOMYCIN 50 MG/ML ORAL SUSP PO SCH ×4 (04:21→22:00)
[2017-01-19] MEDS: METOPROLOL SUCCINATE 25 MG TAB.ER.24H PO SCH (05:03)
[2017-01-19 06:56] VITALS: BP 110/71
[2017-01-19] MEDS: FERROUS SULFATE 325 MG TABLET PO SCH ×2 (08:50→16:35)
[2017-01-19] MEDS: POTASSIUM CHLORIDE 20 MEQ TAB.ER.PRT PO SCH (08:50)
[2017-01-19] MEDS: NS + 20MEQ KCL 1,000 ML IV SCH ×3 (08:50→22:46)
[2017-01-19] MEDS: ENOXAPARIN 60 MG/0.6 ML SQ SCH ×2 (08:50→20:16)
[2017-01-19] MEDS: CLOTRIMAZOLE CRM 1%, 15GM TP SCH ×2 (08:51→21:00)
[2017-01-19] MEDS: CALCIUM ACETATE/ALUMINUM SULF PACKET TP SCH ×3 (08:51→21:00)
[2017-01-19 13:05] VITALS: BP 104/69
[2017-01-19 19:50] VITALS: BP 119/74
[2017-01-20] MEDS: VANCOMYCIN 50 MG/ML ORAL SUSP PO SCH ×3 (00:50→17:26)
[2017-01-20 02:28] VITALS: BP 118/66
[2017-01-20] MEDS: LOPERAMIDE 2 MG CAPSULE PO SCH ×2 (05:27→17:26)
[2017-01-20] MEDS: METOPROLOL SUCCINATE 25 MG TAB.ER.24H PO SCH (05:27)
[2017-01-20 08:17] VITALS: BP 107/71
[2017-01-20] MEDS: FERROUS SULFATE 325 MG TABLET PO SCH ×2 (09:02→17:26)
[2017-01-20] MEDS: ENOXAPARIN 60 MG/0.6 ML SQ SCH (09:02)
[2017-01-20] MEDS: POTASSIUM CHLORIDE 20 MEQ TAB.ER.PRT PO SCH (09:02)
[2017-01-20] MEDS: CALCIUM ACETATE/ALUMINUM SULF PACKET TP SCH ×2 (09:03→17:26)
[2017-01-20] MEDS: CLOTRIMAZOLE CRM 1%, 15GM TP SCH (09:03)
[2017-01-20] MEDS: HYDROcodone/APAP 5/325 TABLET PO PRN (09:23)
[2017-01-20 15:07] VITALS: BP 102/67
[2017-01-20] MEDS: NS + 20MEQ KCL 1,000 ML IV SCH (17:26)
== END 2017-01-20 18:30 | disposition home or self-care (01) | DRG 847 ==
LOC: 3NW 11:19
PROVIDERS: ADMIT Specialist; ATTEND Specialist
PROC: 02HV33Z Insertion of Infusion Device into Superior Vena Cava, Percutaneous Approach (ICD-10-PCS; principal; 2016-12-31)
PROC: B5181ZA Fluoroscopy of Superior Vena Cava using Low Osmolar Contrast, Guidance (ICD-10-PCS; 2016-12-31)
PROC: 3E04305 Introduction of Other Antineoplastic into Central Vein, Percutaneous Approach (ICD-10-PCS; 2016-12-31)
PROC: B548ZZA Ultrasonography of Superior Vena Cava, Guidance (ICD-10-PCS; 2016-12-31)
PROC: DWY Radiation Therapy, Anatomical Regions, Other Radiation (ICD-10-PCS; 2017-01-01)
PROC: 0T9B70Z Drainage of Bladder with Drainage Device, Via Natural or Artificial Opening (ICD-10-PCS; 2017-01-10)
PROC: 30233N1 Transfusion of Nonautologous Red Blood Cells into Peripheral Vein, Percutaneous Approach (ICD-10-PCS; 2017-01-10)
DX: Z51.11 Encounter for antineoplastic chemotherapy (principal); D61.818 Other pancytopenia; C21.8 Malignant neoplasm of overlapping sites of rectum, anus and anal canal; A04.7 Enterocolitis due to Clostridium difficile; N39.0 Urinary tract infection, site not specified; I10 Essential (primary) hypertension; D50.9 Iron deficiency anemia, unspecified; D64.81 Anemia due to antineoplastic chemotherapy; T45.1X5A Adverse effect of antineoplastic and immunosuppressive drugs, initial encounter; R50.81 Fever presenting with conditions classified elsewhere; R62.7 Adult failure to thrive; R32 Unspecified urinary incontinence; L30.9 Dermatitis, unspecified; K76.9 Liver disease, unspecified; E87.6 Hypokalemia; T66.XXXA Radiation sickness, unspecified, initial encounter; B96.89 Other specified bacterial agents as the cause of diseases classified elsewhere; Z91.013 Allergy to seafood; Z91.09 Other allergy status, other than to drugs and biological substances; Z91.041 Radiographic dye allergy status; Y92.89 Other specified places as the place of occurrence of the external cause
CPT/HCPCS: 36415; 36569; 76937; 77001; 77280; 77290; 77307; 77334; 77336; 77387; 77412; 80053; 81001; 83735; 85025; 85027; 86850; 86900; 86923; 87040; 87070; 87077; 87086; 87186; 87324; 87493; J0696; J1100; J1453; J1650; J2405; J3370; J3480; J9280; Q0162; Q0164; C1751; J1447; J3475; J7030; J9190; P9016; Q0163

== ENCOUNTER → 2017-01-28 | Outpatient (CLI) | payer MEDICAID ==
[~2017-01-28] MED LIST changes: +ENOX60SY5 SQ
== END | disposition home or self-care (01) ==
LOC: EDSTATUS 01-03 13:00 → CFH 13:04 → EDSTATUS 13:30
PROVIDERS: ATTEND Nurse Practitioner Family
DX: N63 Unspecified lump in breast (principal); R92.8 Other abnormal and inconclusive findings on diagnostic imaging of breast; N64.89 Other specified disorders of breast; R92.1 Mammographic calcification found on diagnostic imaging of breast
CPT/HCPCS: 76641; G0204

== ENCOUNTER → 2017-01-31 | Outpatient (CLI) | payer MEDICAID | END | disposition home or self-care (01) | LOC: EDSTATUS 01-20 16:02 → ROC 12:31 | PROVIDERS: ATTEND Radiology Radiation Oncology | DX: C21.1 Malignant neoplasm of anal canal (principal) | CPT/HCPCS: 99213; G0463 ==

== ENCOUNTER → 2017-02-07 | Outpatient (CLI) | payer MEDICAID | END | disposition home or self-care (01) | LOC: ROC 15:28 | PROVIDERS: ATTEND Radiology Radiation Oncology | DX: C21.1 Malignant neoplasm of anal canal (principal) | CPT/HCPCS: 99212; G0463 ==

== ENCOUNTER → 2017-02-08 | Outpatient (CLI) | payer MEDICAID ==
[~2017-02-08] MED LIST changes: +ASCO500T8 PO; +CRANBERRY PO; +CYAN50008 PO; +ECHINACEA PO; +HYDR-3144 PO; +LIDOCAINE 1%-EPI 1:100K, 20ML ONE; +LORA1TAB PO; +LORA1TAB46 PO; +MORP30TA3 PO; +MULT-516 PO
== END | disposition home or self-care (01) ==
LOC: CFH 07:21
PROVIDERS: ATTEND Genetic Counselor, MS
DX: R92.2 Inconclusive mammogram (principal); C21.0 Malignant neoplasm of anus, unspecified
CPT/HCPCS: 19083; 88305; 88342; 88360; G0206; J3490; G0461

== ENCOUNTER → 2017-02-14 | Outpatient (CLI) | payer MEDICAID ==
[~2017-02-14] MED LIST changes: -ASCO500T8 PO; -CRANBERRY PO; -CYAN50008 PO; +DIPHENHYDRAMINE 50 MG/ML, 1ML ONE; -ECHINACEA PO; -HYDR-3144 PO; -LIDOCAINE 1%-EPI 1:100K, 20ML ONE; -LORA1TAB PO; -LORA1TAB46 PO; -MORP30TA3 PO; -MULT-516 PO; +OMNIPAQUE 350 MG/ML, 100ML BOTTLE ONE
== END | disposition home or self-care (01) ==
LOC: RAD 11:59
PROVIDERS: ATTEND Radiology Radiation Oncology
DX: C21.2 Malignant neoplasm of cloacogenic zone (principal); C21.1 Malignant neoplasm of anal canal; D73.4 Cyst of spleen; K76.89 Other specified diseases of liver; K83.8 Other specified diseases of biliary tract; K80.20 Calculus of gallbladder without cholecystitis without obstruction; R19.00 Intra-abdominal and pelvic swelling, mass and lump, unspecified site; I10 Essential (primary) hypertension; Z85.3 Personal history of malignant neoplasm of breast; Z85.528 Personal history of other malignant neoplasm of kidney
CPT/HCPCS: 71260; 74177; J1200; Q9967

== ENCOUNTER → 2017-02-22 | Outpatient (CLI) | payer MEDICAID ==
[~2017-02-22] MED LIST changes: +ASCO500T8 PO; +CRANBERRY PO; +CYAN50008 PO; -DIPHENHYDRAMINE 50 MG/ML, 1ML ONE; +ECHINACEA PO; +HYDR-3144 PO; +LORA1TAB PO; +LORA1TAB46 PO; +MORP30TA3 PO; +MULT-516 PO; -OMNIPAQUE 350 MG/ML, 100ML BOTTLE ONE
== END ==
LOC: STAR 12:29
PROVIDERS: ATTEND Surgery
DX: Z02.9 Encounter for administrative examinations, unspecified (principal)

== ENCOUNTER → 2017-02-27 | Outpatient (CLI) | payer MEDICAID | END | disposition home or self-care (01) | LOC: ROC 13:10 | PROVIDERS: ATTEND Radiology Radiation Oncology | DX: C21.0 Malignant neoplasm of anus, unspecified (principal) | CPT/HCPCS: 99212; G0463 ==

== ENCOUNTER 2017-02-28 10:32 | Day surgery (SDC) | payer MEDICAID ==
[~2017-02-28] VITALS: Ht 167.6 cm; Wt 55.0 kg
[~2017-02-28 10:32] MED LIST changes: +BUPIVACAINE/PF 0.5% ONE; +EPINEPHRINE 1 MG/ML, 1ML ONE
[2017-02-28] MEDS ORDERED: SODIUM BICARBONATE 4.2%, 5ML ONE (11:53)
[2017-02-28] MEDS ORDERED: LIDOCAINE 1%, 20ML ONE (11:53)
[2017-02-28] MEDS ORDERED: LACTATED RINGERS 1,000 ML IV SCH (12:55)
[2017-02-28 12:57] VITALS: BP 110/71
[2017-02-28] MEDS ORDERED: ISOSULFAN BLUE 10 MG/ML, 5ML IV ONE (13:09)
[2017-02-28 13:20] LABS: HCG UR OBC PASS
[2017-02-28] MEDS ORDERED: FENTANYL PF 100 MCG/2ML ONE (13:28)
[2017-02-28] MEDS ORDERED: MIDAZOLAM 1 MG/ML, 2ML ONE (13:28)
[2017-02-28] MEDS ORDERED: SCOPOLAMINE PATCH, 1.5MG PATCH.TD72 TD ONE (13:46)
[2017-02-28] MEDS ORDERED: BUPIVACAINE/PF 0.25% ONE (13:54)
[2017-02-28] MEDS ORDERED: MEPERIDINE/PF 25MG/0.5ML IVPush PRN (14:00)
[2017-02-28] MEDS ORDERED: METOPROLOL 1 MG/ML, 5ML IV PRN (14:00)
[2017-02-28] MEDS ORDERED: ONDANSETRON 2MG/ML, 2ML IVPush PRN (14:00)
[2017-02-28] MEDS ORDERED: FENTANYL PF 100 MCG/2ML IV PRN (14:00)
[2017-02-28] MEDS ORDERED: BUPIVACAINE/PF-EPI 0.5% 1:200K INFIL ONE (14:00)
[2017-02-28] MEDS ORDERED: HYDROmorphone 1 MG/ML, 1ML IV PRN (14:00)
[2017-02-28] MEDS ORDERED: PROMETHAZINE 25 MG/ML, 1ML IV PRN (14:00)
[2017-02-28] MEDS ORDERED: MIDAZOLAM 1 MG/ML, 2ML IV PRN (14:00)
[2017-02-28] MEDS ORDERED: OXYcodone 5 MG/5 ML ORAL.SOL UDC PO PRN (14:00)
[2017-02-28] MEDS ORDERED: LABETALOL 5MG/ML, 20ML IV PRN (14:00)
[2017-02-28] MEDS ORDERED: ACETAMINOPHEN 325 MG TABLET PO PRN (14:00)
[2017-02-28] MEDS ORDERED: ONDANSETRON 2MG/ML, 2ML ONE (14:03)
[2017-02-28] MEDS ORDERED: KETOROLAC 30 MG/1 ML ONE (14:03)
[2017-02-28] MEDS ORDERED: KETAMINE 10 MG/ML, 20ML ONE (14:03)
[2017-02-28] MEDS ORDERED: SUCCINYLCHOLINE 20 MG/ML, 10ML ONE (14:03)
[2017-02-28] MEDS ORDERED: METOCLOPRAMIDE 5 MG/ML, 2ML ONE (14:03)
[2017-02-28] MEDS ORDERED: PROPOFOL 10 MG/ML, 20ML ONE (14:03)
[2017-02-28] MEDS ORDERED: PHENYLEPHRINE 10 MG/ML ONE (14:03)
[2017-02-28] MEDS ORDERED: DEXAMETHASONE 4 MG/ML, 5ML ONE (14:03)
[2017-02-28] MEDS ORDERED: CEFAZOLIN 1,000 MG ONE (14:03)
[2017-02-28] MEDS ORDERED: HYDROmorphone 1 MG/ML, 1ML ONE (14:49)
[2017-02-28] MEDS ORDERED: OXYcodone 5 MG/5 ML ORAL.SOL UDC ONE (15:27)
== END 2017-02-28 17:42 | disposition home or self-care (01) ==
LOC: SDC 10:32 → EDSTATUS 14:00 → OUT 17:42
PROVIDERS: ATTEND Surgery
DX: C50.912 Malignant neoplasm of unspecified site of left female breast (principal); F32.9 Major depressive disorder, single episode, unspecified; F41.9 Anxiety disorder, unspecified; Z88.5 Allergy status to narcotic agent
CPT/HCPCS: 19125; 19285; 38525; 38792; 76098; 81025; 88307; 88329; A9541; C1729; G0206; J0171; J0330; J0690; J1100; J1170; J1885; J2250; J2370; J2405; J2704; J2765; J3010; J3490; J7120; 88305

== ENCOUNTER → 2017-04-09 | Outpatient (CLI) | payer MEDICAID ==
[~2017-04-09] MED LIST changes: -BUPIVACAINE/PF 0.5% ONE; -EPINEPHRINE 1 MG/ML, 1ML ONE; +FERR-36 PO; -FERR325T10 PO; -HYDR-3144 PO; +HYDR-3245 PO; +OMNIPAQUE 350 MG/ML, 100ML BOTTLE ONE
== END | disposition home or self-care (01) ==
LOC: CFH 12:59
PROVIDERS: ATTEND Internal Medicine Hematology & Oncology
DX: C78.7 Secondary malignant neoplasm of liver and intrahepatic bile duct (principal); C21.8 Malignant neoplasm of overlapping sites of rectum, anus and anal canal; C50.919 Malignant neoplasm of unspecified site of unspecified female breast; K80.20 Calculus of gallbladder without cholecystitis without obstruction; K76.89 Other specified diseases of liver; D25.9 Leiomyoma of uterus, unspecified; D73.4 Cyst of spleen
CPT/HCPCS: 71260; 74177; Q9967

== ENCOUNTER → 2017-07-03 | Outpatient (CLI) | payer MEDICAID | END | disposition home or self-care (01) | LOC: RAD 14:09 | PROVIDERS: ATTEND Internal Medicine Hematology & Oncology | DX: C21.8 Malignant neoplasm of overlapping sites of rectum, anus and anal canal (principal); K80.20 Calculus of gallbladder without cholecystitis without obstruction; K76.89 Other specified diseases of liver; D73.4 Cyst of spleen; K28.1 Acute gastrojejunal ulcer with perforation | CPT/HCPCS: 74177; Q9967 ==

== ENCOUNTER → 2017-09-17 | Outpatient (CLI) | payer MEDICAID ==
[~2017-09-17] MED LIST changes: -FERR-36 PO; +FERR-51 PO
== END | disposition home or self-care (01) ==
LOC: RAD 13:45
PROVIDERS: ATTEND Internal Medicine Hematology & Oncology
DX: D25.9 Leiomyoma of uterus, unspecified (principal); K80.20 Calculus of gallbladder without cholecystitis without obstruction; K76.9 Liver disease, unspecified; C21.8 Malignant neoplasm of overlapping sites of rectum, anus and anal canal; G89.3 Neoplasm related pain (acute) (chronic)
CPT/HCPCS: 71260; 74177; Q9967

== ENCOUNTER → 2017-12-23 | Outpatient (CLI) | payer MEDICAID | END | disposition home or self-care (01) | LOC: RAD 11:50 | PROVIDERS: ATTEND Internal Medicine Hematology & Oncology | DX: C21.8 Malignant neoplasm of overlapping sites of rectum, anus and anal canal (principal); C78.7 Secondary malignant neoplasm of liver and intrahepatic bile duct; K76.89 Other specified diseases of liver; D73.89 Other diseases of spleen | CPT/HCPCS: 71260; 74177; Q9967 ==

== ENCOUNTER → 2018-04-30 | Outpatient (CLI) | payer MEDICAID ==
[~2018-04-30] MED LIST changes: -CHOL20002 PO; +CHOL200052 PO; -OMNIPAQUE 350 MG/ML, 100ML BOTTLE ONE; +TRAZ-136 PO; -TRAZ50TA18 PO
== END | disposition home or self-care (01) ==
LOC: CFH 15:13
PROVIDERS: ATTEND Internal Medicine Hematology & Oncology
DX: M79.89 Other specified soft tissue disorders (principal); C21.8 Malignant neoplasm of overlapping sites of rectum, anus and anal canal; G89.3 Neoplasm related pain (acute) (chronic)
CPT/HCPCS: 93970

== ENCOUNTER 2018-05-14 14:09 | Inpatient (IN) | payer MEDICAID ==
[~2018-05-14] VITALS: Ht 167.6 cm; Wt 74.5 kg
[2018-05-14] MEDS ORDERED: SODIUM CHLORIDE FLUSH 10ML SYR IVF ONE (14:30)
[2018-05-14] MEDS ORDERED: L.E.T SOLUTION TP ONE (14:55)
[2018-05-14 15:45] LABS: MD YES; MEAN CORPUSCULAR HGB CONC 34.6 g/dL (32.4-35.8); MEAN CORPUSCULAR VOLUME 83.9 fL (80-100); MEAN PLATELET VOLUME 9.2 fL (7.4-10.4); PLATELET COUNT 227 x10^3/uL (130-400); RED BLOOD COUNT 4.42 x10^6/uL (3.82-5.3); RED CELL DISTRIBUTION WIDTH 17.2 % (9.6-15.2)
[2018-05-14 15:53] LABS: ALBUMIN 1.9 g/dL (3.4-5.0); ANION GAP 12 mmol/L (5-15); CALCIUM 7.9 mg/dL (8.5-10.1); CHLORIDE 90 mmol/L (98-107)
[2018-05-14 15:57] LABS: ALANINE AMINOTRANSFERASE 87 U/L (12-78); ALKALINE PHOSPHATASE 400 U/L (45-117); BILIRUBIN,TOTAL 12.2 mg/dL (0.2-1.0); CREATININE 1.78 mg/dL (0.55-1.02); TOTAL PROTEIN 5.4 g/dL (6.4-8.2)
[2018-05-14 16:05] LABS: INTERNATIONAL NORMALIZED RATIO 1.4 (0.93-1.1); PROTHROMBIN TIME 14.3 Seconds (9.6-11.5)
[2018-05-14 16:09] LABS: BAND#(MANUAL) 0.12 x10^3/uL; BANDS%(MANUAL) 1 % (0-7); BASOS#(MANUAL) 0.12 x10^3/uL (0-0.1); BASOS% (MANUAL) 1 % (0-1); METAMYELOCYTES# (MANUAL) 0.12 x10^3/uL (0-0); METAMYELOCYTES% (MANUAL) 1 % (0-1); MONOS#(MANUAL) 0.58 x10^3/uL (0.3-2.7); MONOS% (MANUAL) 5 % (2-9)
[2018-05-14 16:11] LABS: LYMPH#(MANUAL) 0.23 x10^3/uL (1-3.4); LYMPHS% (MANUAL) 2 % (22-44); SEGS% (MANUAL) 90 % (42-75)
[2018-05-14 16:12] LABS: <PLATELET ESTIMATE> ADEQUATE; <PLT MORPHOLOGY> NORMAL PLT MORPH; ANISOCYTOSIS 1+
[2018-05-14] MEDS ORDERED: ACETAMINOPHEN 325 MG TABLET PO PRN (16:30)
[2018-05-14] MEDS ORDERED: ENOXAPARIN 40 MG/0.4 ML SQ SCH (16:30)
[2018-05-14] MEDS ORDERED: morphine SULFATE 10 MG/ML, 1ML IVPush PRN (16:30)
[2018-05-14] MEDS ORDERED: POLYETHYLENE GLYCOL 17 GM PACKET PO PRN (16:30)
[2018-05-14] MEDS ORDERED: ONDANSETRON 2MG/ML, 2ML IVPush PRN (16:30)
[2018-05-14] MEDS ORDERED: DOCUSATE 100 MG CAPSULE PO PRN (16:30)
[2018-05-14] MEDS ORDERED: NALD0.2T PO (16:39)
[2018-05-14] MEDS ORDERED: MELO7.5T31 PO (16:39)
[2018-05-14] MEDS ORDERED: OMEP20TA62 PO (16:39)
[2018-05-14 16:40] LABS: CULTURE INDICATED? YES; MICROSCOPIC INDICATED
[2018-05-14 17:43] VITALS: BP 100/65
[2018-05-14] MEDS: OXYcodone IR 5MG TABLET PO PRN (18:41)
[2018-05-14] MEDS: NS + 20MEQ KCL 1,000 ML IV SCH (18:42)
[2018-05-14] MEDS: FUROSEMIDE 20 MG/2 ML IV SCH (18:52)
[2018-05-14 19:49] VITALS: BP 97/66
[2018-05-14] MEDS: FAMOTIDINE 20 MG TABLET PO SCH (20:54)
[2018-05-14 21:05] VITALS: BP 97/52
[2018-05-15] MEDS: NS + 20MEQ KCL 1,000 ML IV SCH (02:31)
[2018-05-15 02:44] VITALS: BP 94/60
[2018-05-15 05:57] LABS: MEAN CORPUSCULAR HEMOGLOBIN 29.5 pg (27.0-34.8); MEAN CORPUSCULAR HGB CONC 34.9 g/dL (32.4-35.8); MEAN CORPUSCULAR VOLUME 84.6 fL (80-100); MEAN PLATELET VOLUME 8.7 fL (7.4-10.4); PLATELET COUNT 234 x10^3/uL (130-400); RED BLOOD COUNT 4.01 x10^6/uL (3.82-5.3); RED CELL DISTRIBUTION WIDTH 17.3 % (9.6-15.2)
[2018-05-15 06:05] LABS: ALANINE AMINOTRANSFERASE 75 U/L (12-78); ALBUMIN 1.7 g/dL (3.4-5.0); ANION GAP 11 mmol/L (5-15); CALCIUM 7.6 mg/dL (8.5-10.1); CHLORIDE 92 mmol/L (98-107); CREATININE 2.23 mg/dL (0.55-1.02)
[2018-05-15 06:06] LABS: ALKALINE PHOSPHATASE 343 U/L (45-117); BILIRUBIN,TOTAL 11.9 mg/dL (0.2-1.0); TOTAL PROTEIN 4.7 g/dL (6.4-8.2)
[2018-05-15 06:27] LABS: MD YES
[2018-05-15 06:41] LABS: <PLATELET ESTIMATE> ADEQUATE; <PLT MORPHOLOGY> NORMAL PLT MORPH; ANISOCYTOSIS 1+; LYMPH#(MANUAL) 0.21 x10^3/uL (1-3.4); LYMPHS% (MANUAL) 2 % (22-44); MONOS#(MANUAL) 0.21 x10^3/uL (0.3-2.7); MONOS% (MANUAL) 2 % (2-9); SEG#(MANUAL) 9.98 x10^3/uL (1.8-6.8); SEGS% (MANUAL) 96 % (42-75)
[2018-05-15 07:30] VITALS: BP 106/70
[2018-05-15] MEDS: FUROSEMIDE 20 MG/2 ML IV SCH ×2 (08:14→16:58)
[2018-05-15] MEDS: FAMOTIDINE 20 MG TABLET PO SCH (08:17)
[2018-05-15] MEDS: SENNA/DOCUSATE TABLET PO SCH (08:18)
[2018-05-15] MEDS: OXYcodone IR 5MG TABLET PO PRN ×2 (08:19→16:58)
[2018-05-15] MEDS: SODIUM CHLORIDE 0.9% 1,000 ML IV SCH (13:48)
[2018-05-15 15:45] VITALS: BP 106/70
[2018-05-15 19:11] VITALS: BP 104/69
[2018-05-15] MEDS ORDERED: ENOXAPARIN 30 MG/0.3 ML SQ SCH (21:00)
[2018-05-16] MEDS: SODIUM CHLORIDE 0.9% 1,000 ML IV SCH (00:15)
[2018-05-16 01:39] VITALS: BP 107/70
[2018-05-16] MEDS ORDERED: FUROSEMIDE 20 MG/2 ML IV ONE (04:30)
[2018-05-16] MEDS ORDERED: LEVOFLOXACIN/PMX 750MG/150ML 150 ML IV SCH (04:30)
[2018-05-16 05:13] LABS: MEAN CORPUSCULAR HEMOGLOBIN 28.4 pg (27.0-34.8); MEAN CORPUSCULAR HGB CONC 33.5 g/dL (32.4-35.8); MEAN CORPUSCULAR VOLUME 84.7 fL (80-100); MEAN PLATELET VOLUME 8.4 fL (7.4-10.4); PLATELET COUNT 239 x10^3/uL (130-400); RED BLOOD COUNT 4.35 x10^6/uL (3.82-5.3); RED CELL DISTRIBUTION WIDTH 17.6 % (9.6-15.2)
[2018-05-16 05:15] LABS: ANION GAP 14 mmol/L (5-15); CALCIUM 7.6 mg/dL (8.5-10.1); CHLORIDE 96 mmol/L (98-107); CREATININE 2.13 mg/dL (0.55-1.02)
[2018-05-16 05:38] LABS: MD YES
[2018-05-16 05:42] LABS: <PLATELET ESTIMATE> ADEQUATE; <PLT MORPHOLOGY> NORMAL PLT MORPH; ANISOCYTOSIS 1+; BANDS%(MANUAL) 10 % (0-7); LYMPH#(MANUAL) 0.18 x10^3/uL (1-3.4); LYMPHS% (MANUAL) 2 % (22-44); MONOS#(MANUAL) 0.54 x10^3/uL (0.3-2.7); MONOS% (MANUAL) 6 % (2-9); SEG#(MANUAL) 7.38 x10^3/uL (1.8-6.8); SEGS% (MANUAL) 82 % (42-75)
[2018-05-16 05:44] LABS: POLYCHROMASIA 1+
[2018-05-16] MEDS: FUROSEMIDE 20 MG/2 ML IV SCH (07:30)
[2018-05-16 07:50] VITALS: BP 96/61
[2018-05-16] MEDS: SENNA/DOCUSATE TABLET PO SCH (07:55)
[2018-05-16] MEDS: FAMOTIDINE 20 MG TABLET PO SCH (07:55)
[2018-05-16] MEDS ORDERED: MAGNESIUM SULFATE PMX 2GM/50ML 50 ML IV ONE (09:30)
[2018-05-16] MEDS ORDERED: PHARMACY MAY ADJ FOR RENAL FX MC PRN (12:00)
[2018-05-16 12:32] VITALS: BP 94/59
[2018-05-16] MEDS: PIPERACILLIN/TAZO/PMX 3.375GM 50 ML IV SCH ×2 (12:48→19:54)
[2018-05-16 13:21] LABS: ALANINE AMINOTRANSFERASE 74 U/L (12-78); ALBUMIN 1.5 g/dL (3.4-5.0); ANION GAP 13 mmol/L (5-15); CALCIUM 7.6 mg/dL (8.5-10.1); CHLORIDE 96 mmol/L (98-107); CREATININE 2.08 mg/dL (0.55-1.02)
[2018-05-16 13:24] LABS: ALKALINE PHOSPHATASE 332 U/L (45-117); TOTAL PROTEIN 4.4 g/dL (6.4-8.2)
[2018-05-16] MEDS: ALBUMIN HUMAN 25% 100 ML IV SCH ×2 (13:49→23:20)
[2018-05-16 14:28] VITALS: BP 98/62
[2018-05-16 16:52] VITALS: BP 100/60
[2018-05-16] MEDS: HEPARIN 5,000 UNITS/ML, 1ML SQ SCH ×2 (17:02→21:00)
[2018-05-16] MEDS: OXYcodone IR 5MG TABLET PO PRN (17:02)
[2018-05-16 19:40] LABS: CREATININE,URINE RANDOM 39.1 mg/dL
[2018-05-16 19:52] VITALS: BP 100/66
[2018-05-16] MEDS: LORazepam 1MG TABLET PO PRN (21:05)
[2018-05-17 00:58] VITALS: BP 94/59
[2018-05-17] MEDS: PIPERACILLIN/TAZO/PMX 3.375GM 50 ML IV SCH ×3 (02:31→17:46)
[2018-05-17] MEDS: ALBUMIN HUMAN 25% 100 ML IV SCH ×4 (06:28→19:53)
[2018-05-17] MEDS: HEPARIN 5,000 UNITS/ML, 1ML SQ SCH ×3 (06:28→20:41)
[2018-05-17 08:00] VITALS: BP 105/70
[2018-05-17 09:55] LABS: ALANINE AMINOTRANSFERASE 61 U/L (12-78); ALBUMIN 2.5 g/dL (3.4-5.0); ANION GAP 12 mmol/L (5-15); CALCIUM 8.2 mg/dL (8.5-10.1); CHLORIDE 99 mmol/L (98-107); CREATININE 1.91 mg/dL (0.55-1.02)
[2018-05-17 09:58] LABS: ALKALINE PHOSPHATASE 240 U/L (45-117); BILIRUBIN,TOTAL 13.5 mg/dL (0.2-1.0)
[2018-05-17 10:05] LABS: MEAN CORPUSCULAR HEMOGLOBIN 28.3 pg (27.0-34.8); MEAN CORPUSCULAR HGB CONC 33.5 g/dL (32.4-35.8); MEAN CORPUSCULAR VOLUME 84.4 fL (80-100); MEAN PLATELET VOLUME 8.4 fL (7.4-10.4); PLATELET COUNT 254 x10^3/uL (130-400); RED BLOOD COUNT 3.96 x10^6/uL (3.82-5.3)
[2018-05-17 10:24] LABS: MD YES
[2018-05-17 10:26] LABS: <PLATELET ESTIMATE> ADEQUATE; <PLT MORPHOLOGY> NORMAL PLT MORPH; ANISOCYTOSIS 1+; BAND#(MANUAL) 0.86 x10^3/uL; BANDS%(MANUAL) 8 % (0-7); LYMPH#(MANUAL) 0.22 x10^3/uL (1-3.4); LYMPHS% (MANUAL) 2 % (22-44); MONOS#(MANUAL) 0.43 x10^3/uL (0.3-2.7); MONOS% (MANUAL) 4 % (2-9); POLYCHROMASIA 1+; SEG#(MANUAL) 9.29 x10^3/uL (1.8-6.8); SEGS% (MANUAL) 86 % (42-75); TARGET CELLS 1+
[2018-05-17] MEDS: SODIUM CHLORIDE 0.9% 1,000 ML IV SCH (10:30)
[2018-05-17] MEDS: FAMOTIDINE 20 MG TABLET PO SCH (12:30)
[2018-05-17] MEDS: SENNA/DOCUSATE TABLET PO SCH (12:30)
[2018-05-17 13:51] VITALS: BP 98/64
[2018-05-17] MEDS: OXYcodone IR 5MG TABLET PO PRN ×2 (13:54→20:41)
[2018-05-17 19:13] VITALS: BP 105/72
[2018-05-17 20:40] VITALS: BP 107/70
[2018-05-17 22:15] VITALS: BP 113/75
[2018-05-18] MEDS ORDERED: LABETALOL 5MG/ML, 20ML ONE
[2018-05-18 00:29] LABS: TROPONIN I 0.052 ng/mL (0.000-0.045)
[2018-05-18] MEDS: LORazepam 1MG TABLET PO PRN ×2 (00:33→21:58)
[2018-05-18 01:29] LABS: ALANINE AMINOTRANSFERASE 58 U/L (12-78); ALBUMIN 3.3 g/dL (3.4-5.0); ANION GAP 14 mmol/L (5-15); CALCIUM 8.5 mg/dL (8.5-10.1); CHLORIDE 99 mmol/L (98-107)
[2018-05-18 01:31] LABS: ALKALINE PHOSPHATASE 259 U/L (45-117); BILIRUBIN,TOTAL 14.9 mg/dL (0.2-1.0); TOTAL PROTEIN 5.8 g/dL (6.4-8.2)
[2018-05-18] MEDS: PIPERACILLIN/TAZO/PMX 3.375GM 50 ML IV SCH ×4 (01:32→18:32)
[2018-05-18 01:41] LABS: MD YES; MEAN CORPUSCULAR HEMOGLOBIN 28.6 pg (27.0-34.8); MEAN CORPUSCULAR HGB CONC 33.8 g/dL (32.4-35.8); MEAN CORPUSCULAR VOLUME 84.5 fL (80-100); MEAN PLATELET VOLUME 8.8 fL (7.4-10.4); PLATELET COUNT 303 x10^3/uL (130-400); RED BLOOD COUNT 4.53 x10^6/uL (3.82-5.3); RED CELL DISTRIBUTION WIDTH 18.2 % (9.6-15.2)
[2018-05-18 01:43] LABS: <PLATELET ESTIMATE> ADEQUATE; <PLT MORPHOLOGY> NORMAL PLT MORPH; ANISOCYTOSIS 1+; BANDS%(MANUAL) 4 % (0-7); LYMPH#(MANUAL) 0.45 x10^3/uL (1-3.4); LYMPHS% (MANUAL) 3 % (22-44); MONOS#(MANUAL) 0.45 x10^3/uL (0.3-2.7); MONOS% (MANUAL) 3 % (2-9); SEGS% (MANUAL) 90 % (42-75)
[2018-05-18 02:13] LABS: INTERNATIONAL NORMALIZED RATIO 1.64 (0.93-1.1); PROTHROMBIN TIME 16.7 Seconds (9.6-11.5)
[2018-05-18] MEDS: ALBUMIN HUMAN 25% 100 ML IV SCH ×2 (02:25→08:01)
[2018-05-18] MEDS: SODIUM CHLORIDE 0.9% 1,000 ML IV SCH (02:26)
[2018-05-18] MEDS: OXYcodone IR 5MG TABLET PO PRN ×5 (02:35→21:58)
[2018-05-18] MEDS: HEPARIN 5,000 UNITS/ML, 1ML SQ SCH ×3 (05:53→21:57)
[2018-05-18 07:49] LABS: ANION GAP 11 mmol/L (5-15); CALCIUM 8.4 mg/dL (8.5-10.1); CHLORIDE 101 mmol/L (98-107); MEAN CORPUSCULAR HEMOGLOBIN 27.9 pg (27.0-34.8); MEAN CORPUSCULAR HGB CONC 32.9 g/dL (32.4-35.8); MEAN CORPUSCULAR VOLUME 84.7 fL (80-100); MEAN PLATELET VOLUME 8.1 fL (7.4-10.4); PLATELET COUNT 253 x10^3/uL (130-400); RED BLOOD COUNT 4.35 x10^6/uL (3.82-5.3); RED CELL DISTRIBUTION WIDTH 18.3 % (9.6-15.2)
[2018-05-18 08:10] LABS: BASOPHILS % (AUTO) 0 % (0-1); EOSINOPHILS # (AUTO) 0.11 x10^3/uL (0-0.4); EOSINOPHILS % (AUTO) 1 % (1-7); LYMPHOCYTES # (AUTO) 0.14 x10^3/uL (1-3.4); LYMPHOCYTES % (AUTO) 1 % (22-44); MD SCAN; MONOCYTES # (AUTO) 0.77 x10^3/uL (0.2-0.8); MONOCYTES % (AUTO) 7 % (2-9); NEUTROPHILS # (AUTO) 10.41 x10^3/uL (1.8-6.8); NEUTROPHILS % (AUTO) 91 % (42-75)
[2018-05-18 08:43] LABS: FIO2 30 %
[2018-05-18] MEDS: SENNA/DOCUSATE TABLET PO SCH (09:00)
[2018-05-18 09:27] LABS: MICROSCOPIC AUTO
[2018-05-18 09:30] LABS: POTASSIUM,URINE RANDOM 39 mmol/L
[2018-05-18 09:34] LABS: CHLORIDE,URINE RANDOM < 10 mmol/L; SODIUM,URINE RANDOM < 5 mmol/L
[2018-05-18] MEDS: FAMOTIDINE 20 MG TABLET PO SCH (09:39)
[2018-05-18] MEDS: FUROSEMIDE 20 MG/2 ML IV SCH (09:40)
[2018-05-18 10:21] LABS: OSMOLALITY,URINE 504 mOsm/kg (500-850)
[2018-05-18] MEDS: FENTANYL PF 100 MCG/2ML IVPush PRN ×2 (19:27→23:16)
[2018-05-19] MEDS: PIPERACILLIN/TAZO/PMX 3.375GM 50 ML IV SCH ×3 (00:31→12:30)
[2018-05-19] MEDS: FUROSEMIDE 20 MG/2 ML IV SCH ×2 (00:31→09:14)
[2018-05-19] MEDS: HEPARIN 5,000 UNITS/ML, 1ML SQ SCH ×2 (05:00→13:00)
[2018-05-19 05:19] LABS: BASOPHILS % (AUTO) 0 % (0-1); EOSINOPHILS # (AUTO) 0.31 x10^3/uL (0-0.4); EOSINOPHILS % (AUTO) 3 % (1-7); LYMPHOCYTES # (AUTO) 0.31 x10^3/uL (1-3.4); LYMPHOCYTES % (AUTO) 3 % (22-44); MD NO; MEAN CORPUSCULAR HEMOGLOBIN 28.2 pg (27.0-34.8); MEAN CORPUSCULAR HGB CONC 33.4 g/dL (32.4-35.8); MEAN CORPUSCULAR VOLUME 84.4 fL (80-100); MEAN PLATELET VOLUME 8.8 fL (7.4-10.4); MONOCYTES # (AUTO) 0.96 x10^3/uL (0.2-0.8); MONOCYTES % (AUTO) 8 % (2-9); NEUTROPHILS # (AUTO) 10.48 x10^3/uL (1.8-6.8); NEUTROPHILS % (AUTO) 87 % (42-75); PLATELET COUNT 220 x10^3/uL (130-400); RED CELL DISTRIBUTION WIDTH 18.1 % (9.6-15.2)
[2018-05-19 05:26] LABS: ALBUMIN 2.4 g/dL (3.4-5.0); CALCIUM 8.3 mg/dL (8.5-10.1); CHLORIDE 101 mmol/L (98-107)
[2018-05-19 05:32] LABS: ALANINE AMINOTRANSFERASE 64 U/L (12-78); ALKALINE PHOSPHATASE 316 U/L (45-117); ANION GAP 11 mmol/L (5-15); CREATININE 1.66 mg/dL (0.55-1.02); TOTAL PROTEIN 4.9 g/dL (6.4-8.2)
[2018-05-19 05:38] LABS: BILIRUBIN,TOTAL 16.5 mg/dL (0.2-1.0)
[2018-05-19] MEDS: OXYcodone IR 5MG TABLET PO PRN ×2 (09:13→12:21)
[2018-05-19] MEDS: FAMOTIDINE 20 MG TABLET PO SCH (09:14)
[2018-05-19] MEDS: SENNA/DOCUSATE TABLET PO SCH (09:14)
[2018-05-19] MEDS ORDERED: LORazepam 2 MG/ML, 1ML IVPush PRN (13:30)
[2018-05-19] MEDS ORDERED: ATROPINE OPHTH SOLN 1%, 5ML PO PRN (13:30)
[2018-05-19] MEDS: MORPHINE 30MG/30ML PCA.SYR IV PRN (14:18)
[2018-05-19] MEDS: METHADONE INTENSOL 10 MG/ML ORAL CONC PO SCH ×2 (16:27→21:21)
[2018-05-20] MEDS: MORPHINE 30MG/30ML PCA.SYR IV PRN (01:59)
== END 2018-05-20 08:34 | disposition expired | DRG 871 ==
LOC: ED 14:35 → EDIP 16:11 → SUATTDRO 16:13 → 3NW 17:26 → 4EST 05-16 16:11 → CCU 05-18 02:13 → 3NW 05-19 13:53
PROVIDERS: ADMIT Family Medicine; ATTEND Family Medicine
PROC: 0T9B70Z Drainage of Bladder with Drainage Device, Via Natural or Artificial Opening (ICD-10-PCS; principal; 2018-05-18)
DX: A41.9 Sepsis, unspecified organism (principal); E43 Unspecified severe protein-calorie malnutrition; G92 Toxic encephalopathy; J18.9 Pneumonia, unspecified organism; J96.01 Acute respiratory failure with hypoxia; K72.00 Acute and subacute hepatic failure without coma; N17.0 Acute kidney failure with tubular necrosis; K83.1 Obstruction of bile duct; B17.9 Acute viral hepatitis, unspecified; C21.8 Malignant neoplasm of overlapping sites of rectum, anus and anal canal; C78.7 Secondary malignant neoplasm of liver and intrahepatic bile duct; E87.1 Hypo-osmolality and hyponatremia; N39.0 Urinary tract infection, site not specified; D50.9 Iron deficiency anemia, unspecified; Z68.26 Body mass index [BMI] 26.0-26.9, adult; Z88.8 Allergy status to other drugs, medicaments and biological substances; Z88.3 Allergy status to other anti-infective agents; Z91.013 Allergy to seafood; E86.0 Dehydration; E87.70 Fluid overload, unspecified; I10 Essential (primary) hypertension; Z51.5 Encounter for palliative care; Z66 Do not resuscitate; Z81.8 Family history of other mental and behavioral disorders
CPT/HCPCS: 36415; 36600; 71045; 74181; 76700; 78582; 80048; 80053; 81001; 82140; 82306; 82330; 82436; 82570; 82728; 82803; 82962; 83540; 83550; 83605; 83735; 83935; 83970; 84100; 84133; 84145; 84156; 84300; 84443; 84484; 84550; 85025; 85610; 87040; 87077; 87081; 87086; 87186; 93005; 93970; 99285; G0378; J1644; J1650; J1956; J2270; J2405; J2543; J3010; J3480; P9047; A9540; A9558; C9898; J1940; J2060; J3475; J7030; J7512